=== PATIENT | female | born 1955 | race Caucasian/White ===

== ENCOUNTER 2021-05-07 17:13 | Inpatient (IN) ==
--- NOTE | 2021-05-07 18:58 | Emergency Department Note ---
Impression & Plan Abnormal EKG, PAGAN (dyspnea on exertion), Elevated troponin I level, Mass of lung, Anemia ED Provider Note NAME: ENRICO PRICE AGE: 66 SEX: F : 1955 ARRIVES VIA: Walk-In INFORMANT: Patient, ED PROVIDER(S): Matt Ladd DO CHIEF COMPLAINT: Shortness of breath HPI: The patient is a 66-year-old female who presented to the emergency department for an evaluation of shortness of breath. The patient has been experiencing shortness of breath with exertion for approximately 3 weeks. She does not currently have a primary care physician but was establishing with a new primary care physician today. She went there and had outpatient laboratory and radiographic studies. She also had an EKG. She was found to have an a bnormality on EKG as well as chest x-ray. She was sent to the emergency department for further evaluation. Apparently her family doctor also discussed the case with Dr. Farias with cardiology. The patient herself states that she does not have any past medical history. She does not take any medications. She was noted before to have elevated blood pressure but was never taking any medications for it. She is never had a cardiac work-up including echocardiogram or cardiac catheterization. She states her symptoms are significantly improved at rest. ROS: See above HPI for pertinent positives & negatives. A total of 10 systems reviewed and were otherwise negative. PAST MEDICAL HISTORY: See Below PAST SURGICAL HISTORY: See Below FAMILY HISTORY: See Below SOCIAL HISTORY: See Below HOME MEDICATIONS: See Below ALLERGIES: See Below VITALS: See Below PHYSICAL EXAMINATION: GENERAL: Patient is awake alert in no acute distress patient is resting comfortably and showing no signs of anxiety EYES: The conjunctivae are clear. The pupils are round and reactive. EARS, NOSE, MOUTH AND THROAT: The nose is without any evidence of any deformity. NECK: The neck is nontender and supple. RESPIRATORY: Normal respiratory effort is noted there is no evidence of wheezing rhonchi or rales CARDIOVASCULAR: Regular rate and rhythm noted there no murmurs rubs or gallops normal S1 normal S2. GASTROINTESTINAL: The abdomen is soft. Abdomen is nontender. MUSCULOSKELETAL/EXTREMITIES: There is no evidence of gross deformity full range of motion is noted in the hips and shoulders. SKIN: Chronic venous stasis changes were noted in both lower extremities. Trace pedal edema was noted bilaterally. Skin was warm and dry. NEUROLOGIC: Patient is awake alert and oriented x3. MEDICAL DECISION MAKING: The patient is a 66-year-old female who presented to the emergency department at the request of her new primary care physician for an evaluation of an abnormal EKG. The patient had been having shortness of breath with exertion over the last few weeks. She does not have a specific family doctor and I assume does not see physicians regularly. She does have a history of tobacco use. The patient also had a chest x-ray that was done as an outpatient. This appeared to show a wedge-shaped infiltrate. Given the patient's symptoms I was concerned this could represent a pulmonary embolism. I discussed the patient's laboratory and radiographic studies with her. She appears to have a mass in her lung. She was also found to have an abnormal EKG with a bump troponin. This reason I discussed her case with the on-call [facility]. She will likely require further work-up for the pulmonary mass but also a cardiac work-up to determine if her abnormal EKG is ischemic in nature. She was found to have anemia as well. This could be related to the mass in her lung. I could also be the underlying reason why the patient has an elevated troponin and an abnormal EKG. She may have ischemia caused by the anemia unmasking an underlying acute coronary process. Triage Nursing notes reviewed. Prior medical records reviewed Vital Signs: reviewed and remarkable for elevated blood pressure. Differential diagnosis: Cardiac ischemia, aortic dissection, pulmonary embolism, pneumothorax, pneumonia, pericarditis, myocarditis, esophageal rupture, GERD, cholecystitis, pancreatitis, musculoskeletal, as well as other pathologies. ER treatment provided: See below Diagnostics interpreted by me: ECG: EKG was obtained in the emergency department. My interpretation is normal sinus rhythm at 97 bpm. There is no ectopy. Inferior and lateral ST depressions were noted. There was a delta wave appreciated. This could be consistent with preexcitation tracing. No previous tracing was available for comparison. Cardiac Monitoring: An order was placed for continuous cardiac monitoring. The monitor shows a rate of 93 bpm with sinus rhythm. Laboratory studies: As stated above and show below. Imaging studies: See below Consultation(s): I discussed this case with Ricardo who is covering for the [facility] group. Past Med/Surg History Medical History Tobacco use Social History Smoking Status: Current every day smoker Feels Safe at Home: Yes Allergies Allergies Allergy/AdvReac Type Severity Reaction Status Date / Time No Known Allergies Allergy Mild Unverified 05/07/21 20:30 Home Meds Home Medications Medication Instructions Recorded Confirmed No Known Home Medications 05/07/21 05/07/21 Results & Data (ED) Vital Signs Vital Signs - 24 hr 05/07/21 17:22 05/07/21 19:00 05/07/21 19:30 Temperature 37 C Temperature Source Oral Pulse Rate 105 H 93 H Pulse Rate from SpO2 Sensor 94 H Respiratory Rate 18 23 Respiratory Effort / Characteristics Non-Labored Respiratory Depth Normal Blood Pressure 167/83 H 159/70 H Blood Pressure Mean 111 99 Pulse Oximetry 94 98 94 Oxygen Delivery Method Room Air Sepsis Recent Fever Within 48 Hours No Sepsis New/Unexplained Change in Mental Status No Sepsis Action Taken by Nursing No Action Required Home Medications Current Medication List: was personally reviewed by me Laboratory Data Attestation: I reviewed the patient's lab results. Result diagrams: 05/07/21 19:13 05/07/21 19:13 Lab Results 05/07/21 05/07/21 05/07/21 Range/Units 19:13 19:13 19:13 WBC 10.04 (4.8-10.8) K/uL RBC 4.51 (4.2-5.4) M/uL Hgb 8.6 L (12.0-16.0) g/dL Hct 30.7 L (37-47) % MCV 68.1 L (80-100) fL MCH 19.1 L (25-34) pg MCHC 28.0 L (32-36) g/dL Plt Count 408 H (130-400) K/uL Immature Gran % (Auto) 0.2 % Neut % (Auto) 80.2 % Lymph % (Auto) 12.5 % [place] % (Auto) 6.5 % Eos % (Auto) 0.3 % Baso % (Auto) 0.3 % Neut # (Auto) 8.05 H (1.4-6.5) K/uL Lymph # (Auto) 1.26 (1.2-3.4) K/uL [place] # (Auto) 0.65 H (0.11-0.59) K/uL Eos # (Auto) 0.03 (0-0.5) K/uL Baso # (Auto) 0.03 (0-0.2) K/uL Immature Gran # (Auto) 0.02 (0.00-0.02) K/uL Polychromasia 1+ Hypochromasia Present Poikilocytosis Present PT 10.9 (9.0-12.0) Seconds INR 1.1 (0.9-1.1) APTT 27.6 (21.0-31.0) Seconds PTT Ratio 1.0 Sodium 137 (136-145) mmol/L Potassium 4.0 (3.5-5.1) mmol/L Chloride 106 (98-107) mmol/L Carbon Dioxide 23 (21-32) mmol/L Anion Gap 8.0 (3-11) BUN 9 (7-18) mg/dl Creatinine 0.71 (0.6-1.2) mg/dl Est Cr Clr Drug Dosing Not Reportable Est GFR ( Amer) 102.2 ml/min Est GFR (Non-Af Amer) 88.1 ml/min BUN/Creatinine Ratio 12.0 (10-20) Glucose 121 H (70-99) mg/dl Calcium 8.8 (8.5-10.1) mg/dl Total Bilirubin 0.6 (0.2-1) mg/dl AST 19 (15-37) U/L ALT 13 (12-78) U/L Alkaline Phosphatase 150 H (45-117) U/L Troponin I 0.052 H* (0-0.045) ng/ml Total Protein 8.9 H (6.4-8.2) gm/dl Albumin 3.2 L (3.4-5.0) gm/dl Globulin 5.7 H (2.5-4.0) gm/dl Albumin/Globulin Ratio 0.6 L (0.9-2) Lipase 51 L (73-393) U/L COVID-19 Eval Order SARS-CoV-2 (PCR) (Negative) 05/07/21 05/07/21 Range/Units 19:15 19:15 WBC (4.8-10.8) K/uL RBC (4.2-5.4) M/uL Hgb (12.0-16.0) g/dL Hct (37-47) % MCV (80-100) fL MCH (25-34) pg MCHC (32-36) g/dL Plt Count (130-400) K/uL Immature Gran % (Auto) % Neut % (Auto) % Lymph % (Auto) % [place] % (Auto) % Eos % (Auto) % Baso % (Auto) % Neut # (Auto) (1.4-6.5) K/uL Lymph # (Auto) (1.2-3.4) K/uL [place] # (Auto) (0.11-0.59) K/uL Eos # (Auto) (0-0.5) K/uL Baso # (Auto) (0-0.2) K/uL Immature Gran # (Auto) (0.00-0.02) K/uL Polychromasia Hypochromasia Poikilocytosis PT (9.0-12.0) Seconds INR (0.9-1.1) APTT (21.0-31.0) Seconds PTT Ratio Sodium (136-145) mmol/L Potassium (3.5-5.1) mmol/L Chloride (98-107) mmol/L Carbon Dioxide (21-32) mmol/L Anion Gap (3-11) BUN (7-18) mg/dl Creatinine (0.6-1.2) mg/dl Est Cr Clr Drug Dosing Est GFR ( Amer) ml/min Est GFR (Non-Af Amer) ml/min BUN/Creatinine Ratio (10-20) Glucose (70-99) mg/dl Calcium (8.5-10.1) mg/dl Total Bilirubin (0.2-1) mg/dl AST (15-37) U/L ALT (12-78) U/L Alkaline Phosphatase (45-117) U/L Troponin I (0-0.045) ng/ml Total Protein (6.4-8.2) gm/dl Albumin (3.4-5.0) gm/dl Globulin (2.5-4.0) gm/dl Albumin/Globulin Ratio (0.9-2) Lipase (73-393) U/L COVID-19 Eval Order Covid19 at [facility] SARS-CoV-2 (PCR) NEGATIVE (Negative) Administered Medications Discontinued Medications Ioversol (Optiray 320 125ml) 110 ml IV ONCE ONE Stop: 05/07/21 20:04 Last Admin: 05/07/21 20:03 Dose: 1 ml Documented by: [id number] Imaging Data Radiologist's Impression: Chest CTA 05/07/21 18:49 CT angio chest PE protocol CLINICAL HISTORY: Chest Pain, eval for PE TECHNIQUE: Multidetector row helical CT of the chest was performed. Coronal and sagittal reformations were obtained. Automated dose lowering techniques and/or adjustment according to patient size were utilized for this exam. Comparison: None available at the time of this dictation. FINDINGS: Lungs and pleura: There is a large solid, cystic, and groundglass mass in the right upper lobe measuring 67 mm in diameter. 5 mm nodule is seen in the left major fissure (series 4 image 259). There is a 9 mm pleural-based nodule in the right apex. In addition, there is an 8 mm pleural-based nodule in the right lower lobe (image 173), a 7 mm nodule in the right middle lobe (image 165), a 5 mm pleural-based nodule in the left lower lobe (image 135). Atelectasis versus scarring is seen in the right middle lobe. Heart and pericardium: Heart size is normal. No pericardial effusion. Vessels: No evidence of pulmonary embolism. Mediastinum and vinicio: Unremarkable. Chest wall and lower neck: Subcentimeter axillary lymph nodes noted. Abdomen: Unremarkable. Bones: Compression deformity of the T7 vertebral body is noted. IMPRESSION: Multiple pulmonary nodules as above. Large cystic, solid, and groundglass nodule in the right upper lobe. Correlation with prior imaging and oncologic history is recommended to exclude metastatic disease and or right upper lobe primary lung cancer. ACT 112: Negative or not required by law. Electronically signed by: Lamont Oshea M.D. 05/07/2021 8:19 PM Discharge Plan Visit Data Chief Complaint: Shortness of Breath/Dyspnea Stated Complaint: SOB, IRREGULAR EKG ED Provider: Matt Ladd Discharge Problem: Abnormal EKG, PAGAN (dyspnea on exertion), Elevated troponin I level, Mass of lung, Anemia Patient Disposition: Being Evaluated by Hospitalist Forms Stand Alone Forms: JUNIQE Prescriptions Prescriptions: No Action No Known Home Medications RF: 0 Referrals Referrals: Unknown,Unknown [] -
[2021-05-07 19:39] LABS: INR 1.1 (0.9-1.1); Partial Thromboplastin Time 27.6 Seconds (21.0-31.0); Prothrombin Time 10.9 Seconds (9.0-12.0)
[2021-05-07 19:48] LABS: Alanine Aminotransferase 13 U/L (12-78); Albumin Level 3.2 gm/dl (3.4-5.0); Aspartate Aminotransferase 19 U/L (15-37); Blood Urea Nitrogen 9 mg/dl (7-18); Calcium 8.8 mg/dl (8.5-10.1); Carbon Dioxide 23 mmol/L (21-32); Chloride 106 mmol/L (98-107); Est GFR (African American) 102.2 ml/min; Est GFR (Non-African American) 88.1 ml/min; Glucose 121 mg/dl (70-99); Lipase 51 U/L (73-393); Sodium 137 mmol/L (136-145)
[2021-05-07 20:02] LABS: Albumin Globulin Ratio 0.6 (0.9-2); Alkaline Phosphatase 150 U/L (45-117); Bilirubin,Total 0.6 mg/dl (0.2-1); Globulin 5.7 gm/dl (2.5-4.0); Total Protein 8.9 gm/dl (6.4-8.2); Troponin I 0.052 ng/ml (0-0.045)
[2021-05-07] MEDS ORDERED: OPTIRAY 320 125ml IV ONE (20:03)
[2021-05-07 20:21] LABS: Hematocrit (blood only) 30.7 % (37-47); Hemoglobin 8.6 g/dL (12.0-16.0); Mean Corpuscular Hemoglobin 19.1 pg (25-34); Mean Corpuscular Volume 68.1 fL (80-100); Platelet Count 408 K/uL (130-400); Red Blood Count 4.51 M/uL (4.2-5.4); White Blood Count 10.04 K/uL (4.8-10.8)
--- NOTE | 2021-05-07 20:21 | CT Scan Report ---
CT angio chest PE protocol CLINICAL HISTORY: Chest Pain, eval for PE TECHNIQUE: Multidetector row helical CT of the chest was performed. Coronal and sagittal reformations were obtained. Automated dose lowering techniques and/or adjustment according to patient size were u tilized for this exam. Comparison: None available at the time of this dictation. FINDINGS: Lungs and pleura: There is a large solid, cystic, and groundglass mass in the right upper lobe measur ing 67 mm in diameter. 5 mm nodule is seen in the left major fissure (series 4 image 259). There is a 9 mm pleural-based nodule in the right apex. In addition, there is an 8 mm pleural-based nodule in t he right lower lobe (image 173), a 7 mm nodule in the right middle lobe (image 165), a 5 mm pleural-b ased nodule in the left lower lobe (image 135). Atelectasis versus scarring is seen in the right midd le lobe. Heart and pericardium: Heart size is normal. No pericardial effusion. Vessels: No evidence of pulmonary embolism. Mediastinum and vinicio: Unremarkable. Chest wall and lower neck: Subcentimeter axillary lymph nodes noted. Abdomen: Unremarkable. Bones: Compression deformity of the T7 vertebral body is noted. IMPRESSION: Multiple pulmonary nodules as above. Large cystic, solid, and groundglass nodule in the right upper l obe. Correlation with prior imaging and oncologic history is recommended to exclude metastatic diseas e and or right upper lobe primary lung cancer. ACT 112: Negative or not required by law. Electronically signed by: Lamont Oshea M.D. 05/07/2021 8:19 PM
[2021-05-07 20:22] LABS: Basophils # (auto) 0.03 K/uL (0-0.2); Basophils % (auto) 0.3 %; Eosinophils # (auto) 0.03 K/uL (0-0.5); Eosinophils % (auto) 0.3 %; Hypochromasia Present; Immature Granulocytes # (auto) 0.02 K/uL (0.00-0.02); Immature Granulocytes % (auto) 0.2 %; Lymphocytes # (auto) 1.26 K/uL (1.2-3.4); Lymphocytes % (auto) 12.5 %; Monocytes # (auto) 0.65 K/uL (0.11-0.59); Monocytes % (auto) 6.5 %; Neutrophils # (auto) 8.05 K/uL (1.4-6.5); Neutrophils % (auto) 80.2 %; Poikilocytosis Present; Polychromasia 1+
--- NOTE | 2021-05-07 22:09 | History & Physical Report ---
Date of Service May 07, 2021 Assessment & Plan (1) Abnormal EKG: Plan: Abnormal EKG/WPW with delta wave/elevated troponin- The patient will be admitted to telemetry for serial cardiac enzymes, serial EKG's, cardiac rhythm monitoring and a 2-D echocardiogram with Dopplers. Consult cardiology (2) PAGAN (dyspnea on exertion): Plan: Dyspnea on exertion- May be due to hypochromic microcytic anemia, with hemoglobin 8.6. Elevated troponin may be a sign of ischemic heart disease as a contributing factor Significant history of tobacco use, discontinued 1 week ago, may be an undiagnosed COPD with exacerbation Duonebs every 4 hours while awake and every 2 hours when necessary. (3) Elevated troponin I level: Plan: See above (4) Mass of lung: Plan: Right upper lobe lung mass, concerning for primary lung cancer or metastatic disease. Patient will need to be assessed by pulmonology, to see if bronchoscopy can be performed to get lung tissue for a definitive diagnosis (5) Anemia: Plan: Hemoglobin 8.6 upon admission. Hemoccult all stools Follow serial laboratories (6) WPW (Jodly-Ccvyupztx-Mwxlw syndrome): Plan: EKG with WPW and a delta wave Elevated troponin may have been related to an episode of increased heart rate, however, patient does deny any sensation of palpitations. (7) Pulmonary nodules/lesions, multiple: Plan: Will need to be followed per protocol over the next 6 years, in combination with lung mass right upper lobe History of Present Illness Chief Complaint: The patient presents to the emergency department with complaint of worsening shortness of breath and dyspnea on exertion over the past 3 weeks, and was referred to the emergency department by a new PCP that she saw earlier in the day today and was found to have an abnormal EKG Primary Care Provider: NO PCP The patient is a 66-year-old female with no significant past medical history due to not having been seen at a PCPs office for a long time. She presents to the emergency department with worsening shortness of breath and dyspnea on exertion over the past 3 weeks, having been referred by her PCP to the ED due to question of an abnormal EKG performed earlier in the outpatient office today. The patient herself denies chest pain. She denies any blood in stool or dark stools. Abnormal laboratories: WBC 10.04, hemoglobin 8.6, hematocrit 30.7, platelets 408, troponin 0.052, total protein 8.9, albumin 3.2 CT angiography chest PE protocol shows multiple pulmonary nodules, and a right upper lobe nodule with characteristics concerning for a primary lung cancer or metastatic disease. The patient does have history of tobacco use, but she reports quitting 1 week ago Allergies Allergy/AdvReac Type Severity Reaction Status Date / Time No Known Allergies Allergy Mild Unverified 05/07/21 20:30 Home Medications Medication Instructions Recorded Confirmed Type No Known Home Medications 05/07/21 05/07/21 History Past Med/Surg History Medical History Tobacco use Social History Smoking Status: Former smoker Second Hand Exposure: No; Hx Alcohol Use: No Hx Substance Use: No Preferred Language: Kyrgyz Communication Ability: Effective Wealth Management Manager Required: No Beliefs That Will Affect Care: None Current Living Situation: Alone Other Information That Helps Us Care for You: No Feels Safe at Home: Yes Safety Concerns: Feels Safe At This Time Assistive Devices: None Review of Systems Review of Systems: The patient denies chest pain, palpitations, lower extremity swelling, sore throat, fevers, chills, sweats, nausea, vomiting, diarrhea , constipation, abdominal pain, pelvic pain, blood in urine or stool, dysuria, urinary frequency or urgency, lightheadedness, dizziness, headache, memory loss, loss of consciousness, rash, abnormal bruising or bleeding, imbalance, focal or generalized weakness, numbness or tingling in arms or legs, generalized arthralgias or myalgias, back or neck pain, or night sweats. The review of systems is otherwise negative other than for that already noted above, and at least 10 systems have been reviewed. Physical Exam Physical Exam: The patient is awake, alert and oriented 3, well developed and well nourished, normocephalic and atraumatic, lying in bed and in no acute distress. HEENT--PERRL, EOMI, mucous membranes and oropharynx normal. Neck--supple. No JVD. No bruits. Thyroid normal, trachea midline, no adenopathy. Heart--normal S1 and S2. No murmurs, rubs or gallops. Lungs--diminished throughout. No respiratory distress, no accessory muscle use. Abdomen--normal bowel sounds and soft. Nontender. Nondistended, no hernias or masses, no organomegaly. Extremities--no cyanosis or clubbing. No edema. Dermatologic--normal skin turgor, normal color, no abnormal lymph nodes, no rash. Neurologic--cranial nerves II through XII grossly intact. Rheumatologic--normal range of motion. Psychiatric--normal affect. Results & Data Results & Data ([facility]) Vital Signs (Past 12 Hours) Vital Signs Temp Pulse Resp BP Pulse Ox 05/07/21 21:30 93 H 16 126/84 05/07/21 21:00 113 H 23 05/07/21 20:30 103 H 23 127/82 98 05/07/21 20:10 109 H 24 05/07/21 19:30 93 H 23 159/70 H 94 05/07/21 19:00 98 05/07/21 17:22 98.6 F 105 H 18 167/83 H 94 Laboratory Results Laboratory Results WBC 10.04 K/uL (4.8-10.8) 05/07/21 19:13 RBC 4.51 M/uL (4.2-5.4) 05/07/21 19:13 Hgb 8.6 g/dL (12.0-16.0) L 05/07/21 19:13 Hct 30.7 % (37-47) L 05/07/21 19:13 MCV 68.1 fL (80-100) L 05/07/21 19:13 MCH 19.1 pg (25-34) L 05/07/21 19:13 MCHC 28.0 g/dL (32-36) L 05/07/21 19:13 Plt Count 408 K/uL (130-400) H 05/07/21 19:13 Immature Gran % (Auto) 0.2 % 05/07/21 19:13 Neut % (Auto) 80.2 % 05/07/21 19:13 Lymph % (Auto) 12.5 % 05/07/21 19:13 [place] % (Auto) 6.5 % 05/07/21 19:13 Eos % (Auto) 0.3 % 05/07/21 19:13 Baso % (Auto) 0.3 % 05/07/21 19:13 Neut # (Auto) 8.05 K/uL (1.4-6.5) H 05/07/21 19:13 Lymph # (Auto) 1.26 K/uL (1.2-3.4) 05/07/21 19:13 [place] # (Auto) 0.65 K/uL (0.11-0.59) H 05/07/21 19:13 Eos # (Auto) 0.03 K/uL (0-0.5) 05/07/21 19:13 Baso # (Auto) 0.03 K/uL (0-0.2) 05/07/21 19:13 Immature Gran # (Auto) 0.02 K/uL (0.00-0.02) 05/07/21 19:13 Polychromasia 1+ 05/07/21 19:13 Hypochromasia Present 05/07/21 19:13 Poikilocytosis Present 05/07/21 19:13 PT 10.9 Seconds (9.0-12.0) 05/07/21 19:13 INR 1.1 (0.9-1.1) 05/07/21 19:13 APTT 27.6 Seconds (21.0-31.0) 05/07/21 19:13 PTT Ratio 1.0 05/07/21 19:13 Sodium 137 mmol/L (136-145) 05/07/21 19:13 Potassium 4.0 mmol/L (3.5-5.1) 05/07/21 19:13 Chloride 106 mmol/L (98-107) 05/07/21 19:13 Carbon Dioxide 23 mmol/L (21-32) 05/07/21 19:13 Anion Gap 8.0 (3-11) 05/07/21 19:13 BUN 9 mg/dl (7-18) 05/07/21 19:13 Creatinine 0.71 mg/dl (0.6-1.2) 05/07/21 19:13 Est Cr Clr Drug Dosing Not Reportable 05/07/21 19:13 Est GFR ( Amer) 102.2 ml/min 05/07/21 19:13 Est GFR (Non-Af Amer) 88.1 ml/min 05/07/21 19:13 BUN/Creatinine Ratio 12.0 (10-20) 05/07/21 19:13 Glucose 121 mg/dl (70-99) H 05/07/21 19:13 Calcium 8.8 mg/dl (8.5-10.1) 05/07/21 19:13 Total Bilirubin 0.6 mg/dl (0.2-1) 05/07/21 19:13 AST 19 U/L (15-37) 05/07/21 19:13 ALT 13 U/L (12-78) 05/07/21 19:13 Alkaline Phosphatase 150 U/L (45-117) H 05/07/21 19:13 Troponin I 0.071 ng/ml (0-0.045) H* 05/07/21 23:53 Total Protein 8.9 gm/dl (6.4-8.2) H 05/07/21 19:13 Albumin 3.2 gm/dl (3.4-5.0) L 05/07/21 19:13 Globulin 5.7 gm/dl (2.5-4.0) H 05/07/21 19:13 Albumin/Globulin Ratio 0.6 (0.9-2) L 05/07/21 19:13 Lipase 51 U/L (73-393) L 05/07/21 19:13 COVID-19 Eval Order Covid19 at [facility] 05/07/21 19:15 SARS-CoV-2 (PCR) NEGATIVE (Negative) 05/07/21 19:15 Hepatitis C Ab Screen Neg (Neg) 05/07/21 23:53 Impressions Chest CTA 05/07/21 18:49 CT angio chest PE protocol CLINICAL HISTORY: Chest Pain, eval for PE TECHNIQUE: Multidetector row helical CT of the chest was performed. Coronal and sagittal reformations were obtained. Automated dose lowering techniques and/or adjustment according to patient size were utilized for this exam. Comparison: None available at the time of this dictation. FINDINGS: Lungs and pleura: There is a large solid, cystic, and groundglass mass in the right upper lobe measuring 67 mm in diameter. 5 mm nodule is seen in the left major fissure (series 4 image 259). There is a 9 mm pleural-based nodule in the right apex. In addition, there is an 8 mm pleural-based nodule in the right lower lobe (image 173), a 7 mm nodule in the right middle lobe (image 165), a 5 mm pleural-based nodule in the left lower lobe (image 135). Atelectasis versus scarring is seen in the right middle lobe. Heart and pericardium: Heart size is normal. No pericardial effusion. Vessels: No evidence of pulmonary embolism. Mediastinum and vinicio: Unremarkable. Chest wall and lower neck: Subcentimeter axillary lymph nodes noted. Abdomen: Unremarkable. Bones: Compression deformity of the T7 vertebral body is noted. IMPRESSION: Multiple pulmonary nodules as above. Large cystic, solid, and groundglass nodule in the right upper lobe. Correlation with prior imaging and oncologic history is recommended to exclude metastatic disease and or right upper lobe primary lung cancer. ACT 112: Negative or not required by law. Electronically signed by: Lamont Oshea M.D. 05/07/2021 8:19 PM Code Status & VTE Plan Code Status Full code VTE Prophylaxis Plan VTE Prophylaxis will be ordered: Yes PG Care Time/CCT Total # of Minutes Spent Total Time Spent with Patient: Total time spent is greater than 50% in coordination of care (as documented) at patient's floor/unit and/or counseling patient: Coding Level of Care Code 39978 Initial Inpt Care Lvl 3 Diagnoses Abnormal EKG R94.31 PAGAN (dyspnea on exertion) R06.00 Elevated troponin I level R77.8 Mass of lung R91.8 Anemia D64.9 Anemia type: unspecified type WPW (Cqzgg-Tjqitbfug-Evenf syndrome) I45.6 Pulmonary nodules/lesions, multiple R91.8 (1) Anemia Anemia type: unspecified type Qualified Code(s): D64.9 - Anemia, unspecified
[2021-05-07] MEDS ORDERED: ONDANSETRON INJ 2 MG/ML 2 ML VIAL IV PRN (23:17)
[2021-05-07] MEDS ORDERED: ACETAMINOPHEN 325 MG TAB PO PRN (23:17)
[2021-05-07] MEDS ORDERED: NITROGLYCERIN SL 0.4 MG/TAB TAB SL PRN (23:17)
[2021-05-08] MEDS: ALBUT/IPRATROP 3MG/0.5MG NEB 3 ML VIAL NEB SCH ×4 (07:26→20:30)
[2021-05-08 08:16] LABS: Hematocrit (blood only) 30.7 % (37-47); Hemoglobin 8.2 g/dL (12.0-16.0); Mean Corpuscular Hemoglobin 18.8 pg (25-34); Mean Corpuscular Hgb Conc 26.7 g/dL (32-36); Mean Corpuscular Volume 70.3 fL (80-100); Mean Platelet Volume 9.8 fL (7.4-10.4); Platelet Count 449 K/uL (130-400); RDW Standard Deviation 53.8 fL (36.4-46.3); Red Blood Count 4.37 M/uL (4.2-5.4); White Blood Count 6.74 K/uL (4.8-10.8)
[2021-05-08 08:23] LABS: Albumin Globulin Ratio 0.5 (0.9-2); Albumin Level 2.9 gm/dl (3.4-5.0); Bilirubin,Total 0.5 mg/dl (0.2-1); Calcium 8.7 mg/dl (8.5-10.1); Creatinine Clr Calc Pharmacy 88.4 ml/min; Est GFR (African American) 110.5 ml/min; Est GFR (Non-African American) 95.4 ml/min; Globulin 5.4 gm/dl (2.5-4.0); Potassium 3.7 mmol/L (3.5-5.1); Total Protein 8.4 gm/dl (6.4-8.2)
[2021-05-08 08:24] LABS: Troponin I 0.071 ng/ml (0-0.045)
[2021-05-08 09:02] LABS: Anisocytosis Present; Basophils # (auto) 0.04 K/uL (0-0.2); Basophils % (auto) 0.6 %; Eosinophils # (auto) 0.05 K/uL (0-0.5); Eosinophils % (auto) 0.7 %; Hypochromasia Present; Immature Granulocytes # (auto) 0.01 K/uL (0.00-0.02); Immature Granulocytes % (auto) 0.1 %; Lymphocytes # (auto) 1.32 K/uL (1.2-3.4); Lymphocytes % (auto) 19.6 %; Microcytosis Present; Monocytes # (auto) 0.84 K/uL (0.11-0.59); Monocytes % (auto) 12.5 %; Neutrophils # (auto) 4.48 K/uL (1.4-6.5); Neutrophils % (auto) 66.5 %; Polychromasia 1+
[2021-05-08] MEDS: ASPIRIN 81 MG ECTAB PO SCH (09:08)
[2021-05-08] MEDS: FAMOTIDINE 20 MG in SYRINGE 3 ML IV SCH ×2 (09:10→21:46)
[2021-05-08] MEDS: ENOXAPARIN INJ 40 MG/0.4 ML SYR SQ SCH (09:10)
[2021-05-08] MEDS ORDERED: PNEUMOCOCCAL POLYSACCHARIDES 25 MCG/0.5 ML VIAL/SYR IM ONE (10:00)
[2021-05-08] MEDS ORDERED: INFLUENZA VACCINE HIGH DOSE PF 65+ 0.7 ML SYR IM ONE (10:00)
[2021-05-08 11:37] LABS: Ferritin 6.2 ng/ml (8-388)
--- NOTE | 2021-05-08 12:19 | XCELERA ---
[id number]
--- NOTE | 2021-05-08 13:21 | Cardiology Consultation ---
Date of Consultation May 08, 2021 Assessment & Plan (1) WPW (Yiufr-Opvaycabz-Flmcf syndrome): -no prior EKGs for comparison. -she gives a history of rare short-lived palpitations. -will ask an opinion from one of our electrophysiologists. (2) Elevated troponin I level: -suspect a supply demand mismatch as she has borderline LVH, sinus tachycardia, and a profound anemia. -no evidence to suggest an acute coronary syndrome. -no need for intravenous heparin. (3) Mitral regurgitation: -mild to moderate on current echocardiogram. History of Present Illness Attending Physician: Muna Levy MD History of Present Illness Ms. Hubbard is a 66-year-old female admitted yesterday with progressive shortness of breath, anemia, and an abnormal EKG. This consultation was ordered to assist in her cardiac management. The patient was in her usual state of health until approximately 3 weeks prior to presentation. She began to note progressive exertional dyspnea and fatigue. She did not experience exertional chest pain. She presented to her PCP on the day of admission with the above complaints. An EKG was performed which noted a short UT interval and a delta wave consistent with Kwkhh-Hzpjkgcdn-Zyylb syndrome. She was sent to the emergency room for further care. On arrival here, patient was noted to be significantly anemic. Hospitalization was recommended. Unfortunately, part of her evaluation included CT scan of the chest which noted large right upper lobe mass consistent with a malignancy. The patient has never had a prior EKG according to her report. She was never told of the Auacd-Jnnoqplds-Bnpci syndrome. She does experience occasional sustained palpitations lasting no more than several seconds. This occurs quite infrequently. Currently, patient is resting comfortably in bed without complaints. Past medical and surgical history 1. 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 Rcto-el-runvchkn mitral regurgitation 3. Borderline LVH Social history Single, lives alone Quit tobacco use 1 week ago. Smoked 1.5-2 packs cigarettes daily for many years. Rare alcohol Family history Mother at 93 with breast cancer Father at 94 from coronary disease Review of systems A 10 review systems was negative except that described above. 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 HEENT exam notes poor dentition. Neck is supple with full carotid upstrokes. No carotid bruits. Jugular is pressure is flat at 90. There is no thyromegaly. Cardiovascular exam reveals a regular rhythm with a 2/6 apical holosystolic murmur. No S3-S4. Lungs are clear without rales, rhonchi or wheezes. Abdomen is soft and nontender without bruits. Extremities reveal intact radial artery pulses bilaterally. There is no peripheral edema. Results & Data ([facility]) Vital Signs (Past 12 Hours) Vital Signs Temp Pulse Resp BP Pulse Ox 05/08/21 12:10 87 20 96 05/08/21 12:00 36.8 C 91 H 26 H 140/82 95 05/08/21 07:49 36.8 C 96 H 20 161/79 H 93 05/08/21 07:26 87 18 92 05/08/21 04:00 36.7 C 97 H 16 149/76 H 92 Laboratory Results CBC notes hemoglobin 8.2, hematocrit 30.7, white count 6.74, platelet count [id number]. Electrolytes note a sodium of 140, potassium 3.7, chloride 109, bicarb 25, BUN 9, creatinine 0.58, glucose of 109. Initial troponin was mildly elevated 0.052 with follow-up values of 0.071 x 2. 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 Chest x-ray shows no acute disease. Echocardiogram notes normal left ventricular systolic function with ejection fraction of 60-65%. There is borderline LVH and mild to moderate mitral regurgitation. CT scan of the chest notes multiple pulmonary nodules and is 67 mm in diameter right upper lobe mass. PG Care Time/CCT Total # of Minutes Spent Total Time Spent with Patient: Total time spent is greater than 50% in coordination of care (as documented) at patient's floor/unit and/or counseling patient: Coding Level of Care Code 21384 Initial Inpt Care Lvl 3 Diagnoses WPW (Exaen-Aceyrwcxh-Koxlq syndrome) I45.6 Mitral regurgitation I34.0 Elevated troponin I level R77.8
--- NOTE | 2021-05-08 14:05 | Electrocardiogram Report ---
Test Reason : Blood Pressure : / mmHG Vent. Rate : 097 BPM Atrial Rate : 097 BPM P-R Int : 124 ms QRS Dur : 108 ms QT Int : 414 ms P-R-T Axes : 079 066 -29 degrees QTc Int : 525 ms Normal sinus rhythm Ventricular pre-excitation, WPW pattern type B Abnormal ECG No previous ECGs available Confirmed by Matt Torres ([id number]) on 05/08/2021 2:05:09 PM Referred By: REFERRED SELF Confirmed By:Matt Torres
--- NOTE | 2021-05-08 14:13 | Electrocardiogram Report ---
Test Reason : Blood Pressure : / mmHG Vent. Rate : 097 BPM Atrial Rate : 097 BPM P-R Int : 114 ms QRS Dur : 106 ms QT Int : 404 ms P-R-T Axes : 074 061 -78 degrees QTc Int : 513 ms Normal sinus rhythm Marked ST abnormality, possible inferior subendocardial injury Prolonged QT Abnormal ECG When compared with ECG of 07-MAY-2021 19:06, (unconfirmed) Xgrui-zeeromqyu-vpnsy is no longer Present Confirmed by Matt Torres ([id number]) on 05/08/2021 2:12:55 PM Referred By: REFERRED SELF Confirmed By:Matt Torres
--- NOTE | 2021-05-08 16:05 | Hospitalist Progress Note ---
Date of Service May 08, 2021 Assessment & Plan (1) Abnormal EKG: (2) WPW (Idszd-Qsmarlgdt-Vfwfw syndrome): (3) Pulmonary nodules/lesions, multiple: (4) Mitral regurgitation: (5) Elevated troponin I level: (6) Mass of lung: (7) Anemia: (8) PAGAN (dyspnea on exertion): Plan: 66 y/o who presented to PCP office with shortness of breath send to ED for abnormal EKG (1) Abnormal EKG: Abnormal EKG/WPW with delta wave/elevated troponin- -The patient is admitted to telemetry for serial cardiac enzymes, serial EKG's, cardiac rhythm monitoring and a 2-D echocardiogram with Dopplers. -Cardiology confirmed WPW, they do not believe that there is any ACS at this t jayden. Further to be addressed by EP -Echo revealed mild to moderate mitral regurgitation. (2) PAGAN (dyspnea on exertion): -Pulse Ox has been 92 or above on RA throughout time in hospital. -Elevated troponin - likely demand ischemia -PE ruled out -Significant history of tobacco use, discontinued 1 week ago, may be an undiagnosed COPD with exacerbation -Pro-BNP elevation noted, but not as concerned for fluid overload as the cause. -Continue Duonebs every 4 hours while awake and every 2 hours when necessary as pt felt that this did help her symptoms, recommend PFTs in the future. (3) Elevated troponin I level: -Cardiology believes that elevated troponin is secondary to supply demand mismatch as she has borderline LVH, sinus tachycardia, and anemia present. -No heparin drip indicated at this time, no evidence to suggest ACS. -0.05 on admission, elevated to 0.07 and now back to 0.05. (4) Mass of lung: -Right upper lobe lung mass, concerning for primary lung cancer or metastatic disease. -Patient will need to be assessed by pulmonology to see if bronchoscopy can be performed to get lung tissue for a definitive diagnosis. -Consult pulmonology on Monday -Will need to be followed per protocol over the next 6 years, in combination with lung mass right upper lobe (5) Anemia: -Hemoglobin 8.6 upon admission. -Hemoccult all stools -Follow serial laboratories -Serum Iron, Transferrin, and TIBC ordered for suspect iron deficiency anemia -Will need colonoscopy as outpatient. (6) WPW (Rriuq-Hgkagndkp-Hkbca syndrome): -EKG with WPW and a delta wave -Elevated troponin may have been related to an episode of increased heart rate, however, patient does deny any sensation of palpitations. -Cardiology is going to get opinion from one of the electrophysiologists on further action. Kenisha Full code Admission and Anticipated Discharge Date Admission Date: May 07, 2021 Supervising Physician Co-Signing Physician Notes Resident Physician Supervision Note: I independently interviewed and examined the patient and verified the santa history and physical, reviewed labs and image studies and agree with resident Dr. Najera findings and care plan. Subjective Chief Complaint: The patient presents to the emergency department with complaint of worsening shortness of breath and dyspnea on exertion over the past 3 weeks, and was referred to the emergency department by a new PCP that she saw earlier in the day today and was found to have an abnormal EKG The patient is a 66-year-old female with no significant past medical history due to not having been seen at a PCPs office for a long time. She had presented to the emergency department with worsening shortness of breath and dyspnea on exertion over the past 3 weeks, having been referred by her recently new PCP to the ED due to question of an abnormal EKG performed earlier in the outpatient office on 05/07/21. She states that she has had increasing difficulty walking around around the house as it makes her SOB, but she is comfortable at rest that seems to be getting progressively worse. The patient herself denies syncope, chest pain, orthopnea, or cough. She reports that she does have swelling and dry skin on her legs. She has a significant smoking history reporting 1.5-2 packs of cigarettes per day for the past 50 years with quitting a week prior to today. She did not have routine care prior to her recent complaint of PAGAN. This is why she has no chronic medical conditions according to her history. She has not had a colonoscopy or any routine screening for health maintainence. Pt has never had a cardiovascular workout or prior EKGs. Pt denies any blood in stool or dark stools or abdominal pain. Her family history is significant for Mother passing at 93 with breast cancer and father passing at 94 from coronary disease. Denies and FHx of colon cancer. Pt was started on DuoNebs this morning which the patient reports helped her SOB somewhat, but it was still present. Studies performed in the ED -A CTA of the chest was performed, but did not show an pulmonary embolism, however, it did show multiple pulmonary nodules, and a right upper lobe nodule with characteristics concerning for a primary lung cancer or metastatic disease. -EKG revealing WPW with inferior and lateral ST depressions noted. -CBC revealing anemia at 8.6 -Troponin level of 0.052 Review of Systems Review of Systems: All systems reviewed & are unremarkable except as noted in HPI & below Physical Exam Constitutional: WD/WN, vitals as above cooperative Eyes: PERRL, conjunctivae normal, anicteric sclerae Neck: trachea midline, no thyromegaly Respiratory: normal respiratory effort; no respiratory distress Auscultation: + rales and + wheezes Cardiovascular: Rate/Rhythm: regular rhythm and + tachycardic Heart Sounds: normal S1, normal S2 and + murmur (2/6 systolic murmur best heard at the apex.) Palpation: normal PMI Vessels: no JVD Extremities: + edema (1+ pitting e althea of the LE b/l) Gastrointestinal (Abdomen): normal bowel sounds, soft, nontender, no hepatosplenomegaly Skin: + dry skin (LE b/l) Neurologic: moves all extremities Psychiatric: A+Ox3, euthymic affect Lymphatic: no cervical or axillary lymphadenopathy Results & Data Results & Data ([facility]) Vital Signs (Past 12 Hours) Vital Signs Temp Pulse Resp BP Pulse Ox 05/08/21 15:14 87 18 95 05/08/21 12:10 87 20 96 05/08/21 12:00 36.8 C 91 H 26 H 140/82 95 05/08/21 07:49 36.8 C 96 H 20 161/79 H 93 05/08/21 07:26 87 18 92 05/08/21 04:00 36.7 C 97 H 16 149/76 H 92 (1) Anemia Anemia type: unspecified type Qualified Code(s): D64.9 - Anemia, unspecified
[2021-05-09 07:09] LABS: Hematocrit (blood only) 30.1 % (37-47); Hemoglobin 8.1 g/dL (12.0-16.0); Mean Corpuscular Hemoglobin 18.8 pg (25-34); Mean Corpuscular Hgb Conc 26.9 g/dL (32-36); Mean Corpuscular Volume 69.8 fL (80-100); Mean Platelet Volume 9.9 fL (7.4-10.4); Platelet Count 424 K/uL (130-400); RDW Coefficient of Variation 20.9 % (11.5-14.5); RDW Standard Deviation 53.2 fL (36.4-46.3); Red Blood Count 4.31 M/uL (4.2-5.4); White Blood Count 5.92 K/uL (4.8-10.8)
[2021-05-09] MEDS: ALBUT/IPRATROP 3MG/0.5MG NEB 3 ML VIAL NEB SCH (07:28)
[2021-05-09 07:31] LABS: Basophils # (auto) 0.03 K/uL (0-0.2); Basophils % (auto) 0.5 %; Eosinophils # (auto) 0.05 K/uL (0-0.5); Eosinophils % (auto) 0.8 %; Hypochromasia Present; Immature Granulocytes # (auto) 0.01 K/uL (0.00-0.02); Immature Granulocytes % (auto) 0.2 %; Lymphocytes # (auto) 1.12 K/uL (1.2-3.4); Lymphocytes % (auto) 18.9 %; Microcytosis Present; Monocytes # (auto) 0.76 K/uL (0.11-0.59); Monocytes % (auto) 12.8 %; Neutrophils # (auto) 3.95 K/uL (1.4-6.5); Neutrophils % (auto) 66.8 %; Polychromasia 1+
[2021-05-09 07:45] LABS: Albumin Level 2.8 gm/dl (3.4-5.0); BUN Creatinine Ratio 14.4 (10-20); Calcium 8.4 mg/dl (8.5-10.1); Creatinine Clr Calc Pharmacy 74.1 ml/min; Est GFR (African American) 105.4 ml/min; Potassium 3.8 mmol/L (3.5-5.1)
[2021-05-09 07:48] LABS: Albumin Globulin Ratio 0.5 (0.9-2); Bilirubin,Total 0.4 mg/dl (0.2-1); Globulin 5.3 gm/dl (2.5-4.0); Total Protein 8.1 gm/dl (6.4-8.2)
[2021-05-09] MEDS ORDERED: POLYETHYLENE (MIRALAX) 17 GM PACK PO PRN (08:00)
[2021-05-09] MEDS: ASPIRIN 81 MG ECTAB PO SCH (08:38)
[2021-05-09] MEDS: ENOXAPARIN INJ 40 MG/0.4 ML SYR SQ SCH (08:38)
[2021-05-09] MEDS: FAMOTIDINE 20 MG in SYRINGE 3 ML IV SCH (08:42)
[2021-05-09] MEDS ORDERED: FERROUS SULFATE 325 MG TAB PO SCH (09:00)
[2021-05-09] MEDS ORDERED: ALBUT/IPRATROP 3MG/0.5MG NEB 3 ML VIAL NEB PRN (09:16)
[2021-05-09] MEDS ORDERED: IRON SUCROSE 200 MG in 0.9 % SODIUM CHLORIDE 100 ML IV SCH (12:00)
[2021-05-09] MEDS ORDERED: OPTIRAY 320 100ml IV ONE (15:35)
--- NOTE | 2021-05-09 15:46 | CT Scan Report ---
CT abd pelvis oral and IV con CLINICAL HISTORY: Primary lung nodule and iron deficient anemia TECHNIQUE: Helical axial images of the abdomen and pelvis were obtained and displayed. Automated dose lowering techniques and/or adjustment according to patient size were utilized for this exam. This e xam was performed with intravenous contrast. COMPARISON: None available at the time of this dictation. FINDINGS: Lower chest: A 7 mm nodule is in the lingula. 4 mm pleural-based nodules at the right lung base. Liver: Unremarkable. No focal lesions are seen. Gallbladder and biliary tree: No calcified gallstones. Normal caliber wall. No intra- or extrahepatic biliary ductal dilation. Pancreas: Unremarkable, no focal lesions. Spleen: Unremarkable. Adrenals: There is a 1 cm left adrenal nodule measuring greater than fat density. Kidneys and ureters: Unremarkable. Bladder: Unremarkable. Reproductive organs: Unremarkable. Bowel: A hiatal hernia is seen. Lymph nodes Retroperitoneal: Unremarkable. Mesenteric: Unremarkable. Pelvic: Lymph node are seen in the bilateral inguinal regions measuring up to 9 mm. Peritoneum: Unremarkable. Vessels: Atherosclerotic calcifications are seen. Abdominal wall: Unremarkable. Bones: Bilateral pars defects at L5-S1 with resultant grade 2 anterolisthesis. No lytic or sclerotic lesions are seen. IMPRESSION: There is a soft tissue density nodule in the left adrenal gland. Which may represent a lipid poor heath noma or metastatic lesion. Adrenal protocol CT or MRI can be performed to further characterize this f inding. Subcentimeter lymph nodes in the bilateral inguinal regions is favored to be reactive. Otherw ise, no evidence of metastatic disease below the diaphragm. ACT 112: Negative or not required by law. Electronically signed by: Lamont sOhea M.D. 05/09/2021 3:44 PM
--- NOTE | 2021-05-09 16:52 | Discharge Summary ---
Date of Service May 09, 2021 Admission HPI Per Admitting Provider The patient is a 66-year-old female with no significant past medical history due to not having been seen at a PCPs office for a long time. She presents to the emergency department with worsening shortness of breath and dyspnea on exertion over the past 3 weeks, having been referred by her PCP to the ED due to question of an abnormal EKG performed earlier in the outpatient office today. The patient herself denies chest pain. She denies any blood in stool or dark stools. Abnormal laboratories: WBC 10.04, hemoglobin 8.6, hematocrit 30.7, platelets 408, troponin 0.052, total protein 8.9, albumin 3.2 CT angiography chest PE protocol shows multiple pulmonary nodules, and a right upper lobe nodule with characteristics concerning for a primary lung cancer or metastatic disease. The patient does have history of tobacco use, but she reports quitting 1 week ago Principal Diagnosis PAGAN secondary to demand ischemia likely due to iron deficient anemia Discharge Exam Constitutional WD/WN, vitals as above cooperative Eyes PERRL, conjunctivae normal, anicteric sclerae Neck trachea midline, no thyromegaly Respiratory normal respiratory effort; no respiratory distress Cardiovascular Rate/Rhythm: regular rhythm and + tachycardic Heart Sounds: normal S1, normal S2 and + murmur (2/6 systolic murmur best heard at the apex.) Palpation: normal PMI Vessels: no JVD Extremities: + edema (1+ pitting edema of the LE b/l) Gastrointestinal (Abdomen) normal bowel sounds, soft, nontender, no hepatosplenomegaly Skin + dry skin (LE b/l) Neurologic moves all extremities Psychiatric A+Ox3, euthymic affect Lymphatic no cervical or axillary lymphadenopathy Discharge Data Allergies Allergy/AdvReac Type Severity Reaction Status Date / Time No Known Allergies Allergy Mild Unverified 05/07/21 20:30 Consultations 05/07/21 21:05 ED Decision to Admit Stat 05/07/21 23:17 Consult Cardiology Routine Ordered Studies 05/07/21 18:49 CT angio chest PE protocol Stat 05/09/21 11:12 CT abd pelvis oral and IV con Routine Hospital Course (1) Abnormal EKG: (2) WPW (Hbwam-Nntqgxyff-Aytnu syndrome): (3) Pulmonary nodules/lesions, multiple: (4) Mitral regurgitation: (5) Elevated troponin I level: (6) Mass of lung: (7) Anemia: (8) PAGAN (dyspnea on exertion): 66 y/o who presented to PCP office with shortness of breath send to ED for abnormal EKG (1) Abnormal EKG: Abnormal EKG/WPW with delta wave/elevated troponin- -The patient was admitted to telemetry for serial cardiac enzymes, serial EKG's, cardiac rhythm monitoring and a 2-D echocardiogram with Dopplers. -Cardiology confirmed WPW, they do not believe that there is any ACS at this time. F/u with cardiology in the outpatient setting. -Echo revealed mild to moderate mitral regurgitation. -Will likely need an ablation in the rat exterminator to terminate the accessory pathway causing WPW. (2) PAGAN (dyspnea on exertion): -Pulse Ox has been 92 or above on RA throughout time in hospital. -Improved since hospitalization after receiving DuoNebs Q6h during stay. -Elevated troponin - likely demand ischemia -PE ruled out -Significant history of tobacco use, discontinued 1 week ago, may be an undiagnosed COPD with exacerbation, will follow in outpatient setting. -Pro-BNP elevation noted, but not as concerned for fluid overload as the cause. -Recommend PFTs in the future. (3) Elevated troponin I level: -Cardiology believes that elevated troponin is secondary to supply demand mismatch as she has borderline LVH, sinus tachycardia, and anemia present. -No heparin drip indicated at this time, no evidence to suggest ACS. -0.05 on admission, elevated to 0.07 and now back to 0.05. (4) Mass of lung: -Right upper lobe lung mass, concerning for primary lung cancer or metastatic disease. -Patient will need to be assessed by pulmonology to see if bronchoscopy can be performed to get lung tissue for a definitive diagnosis. -Discussed with pulmonology who states the lesions are not able to be biopsied via bronchoscopy and an outpatient workup would be more appropriate at this time. -Will need to be followed per protocol over the next 6 years for lung nodules. -CT of abdomen/pelvis done with contrast found singular lesion: "There is a soft tissue density nodule in the left adrenal gland. Which may represent a lipid poor adenoma or metastatic lesion." Otherwise there was no sign of malignancy below the diaphragm. (5) Anemia: -Hemoglobin 8.6 upon admission. Low ferritin and serum iron indicated iron deficient anemia -Iron sucrose IV given as well as oral sulfate given today. Continue ferrous sulfate upon D/C. -Will need colonoscopy as outpatient. (6) WPW (Xwqtd-Xnbjxksgs-Jsabm syndrome): -EKG with WPW and a delta wave -Elevated troponin may have been related to an episode of increased heart rate, however, patient does deny any sensation of palpitations. -Cardiology is going to get opinion from one of the electrophysiologists on further action. Total Time Total Time Spent Total Time Spent (In Minutes): 30 Discharge Plan Discharge Items Patient Disposition: Home - Self-Care Reason For Visit: SOB, ELEVATED TROPONIN, WPW Discharge Diagnosis: PAGAN secondary to demand ischemia likely due to anemia Activity: Resume your previous activity Non-emergency contact: Primary Care Provider and Cell Biology Scientist Follow-up/Referrals: Brooks Najera DO [Resident] - PCP,NO [Primary Care Provider] - Diet: Heart Healthy Addtl Attending Provider Instructions: You were seen in the hospital for shortness of breath on exertion. Your workup included having an EKG, CT of the chest and abdomen, as well as lab work that can be found in your discharge paperwork. 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 WPW will be further worked up by Cardiology for which I will get you set up with. The pulmonary nodules, as discussed, require an extensive workup we can do in the outpatient setting and a referral to pulmonology will be made, and the iron deficient anemia will be treated by the iron supplement you will be sent home with. It is recommended that you get a colonoscopy in the outpatient setting as this could be the source of blood loss for anemia. A workup for COPD is also recommended as you have a significant smoking history and your symptoms improved with DuoNebs, a medication for COPD. You may return to your previous activity as tolerated. It was a pleasure to be a part of your care and I wish you the best in your recovery as well as your wellbeing. Pending Studies at Discharge: No Stand-Alone Forms: My [facility] [employer], Smoking Cessation Medications and DC Order Prescriptions: New polyethylene glycol 3350 [Miralax] 17 gram Powder In Packet 17 g PO DAILY PRN (Reason: constipation) 30 Days Qty: 30 RF: 0 ferrous sulfate 325 mg (65 mg iron) Tablet,Delayed Release (Dr/Ec) 325 mg PO QAM 30 Days Qty: 30 RF: 0 Discharge Orders: Discharge Order (Routine); Ordered 05/09/21 Ordered By: Brooks Palm/Other Patient Handouts: Anemia, Shortness of Breath Coping, Iron Supplements, ED Pulmonary Nodule, Solitary Admission Data Admit Date/Time: 05/07/21 22:08 Attending Provider: Muna Levy Admit Provider: Walter Kenyon Primary Care Provider: PCP,LION Other Providers: Walter Kenyon ; Alfredo Lucas Supervising Physician Co-Signing Physician Notes Resident Physician Supervision Note: I independently interviewed and examined the patient and verified the santa history and physical, reviewed labs and image studies and agree with resident Dr. Najera findings and care plan.
[2021-05-10 11:17] LABS: iSTAT Creatinine 0.6 mg/dl (0.6-1.3); iSTAT Hemoglobin 11.2 g/dl (12.0-16.0); iSTAT Ionized Calcium 1.14 mmol/l (1.12-1.32); iSTAT Potassium 3.9 mmol/L (3.3-5.0)
--- NOTE | 2021-05-11 04:34 | Electrocardiogram Report ---
Test Reason : Blood Pressure : / mmHG Vent. Rate : 074 BPM Atrial Rate : 074 BPM P-R Int : 108 ms QRS Dur : 110 ms QT Int : 440 ms P-R-T Axes : 070 056 035 degrees QTc Int : 488 ms Normal sinus rhythm Nuoxt-igithpswq-uvzsm pattern Nonspecific ST abnormality Prolonged QT Abnormal ECG When compared with ECG of 08-MAY-2021 08:47, No significant change Confirmed by Elier Uribe ([id number]) on 05/11/2021 4:34:06 AM Referred By: REFERRED SELF Confirmed By:Elier Uribe
== END 2021-05-09 18:20 | disposition home or self-care (01) | DRG 812 ==
LOC: ED 17:13 → SUATTDRO 22:08 → EDINP 22:08 → 2S 23:12

== ENCOUNTER 2021-06-02 05:27 | Observation (INO) ==
--- NOTE | 2021-05-31 12:04 | Anesthesiology Consultation ---
Date of Service May 31, 2021 Assessment & Plan (1) Encounter for pre-operative examination: Chart Review Chart Review: Acceptable Risk for Surgery (pending anesthesia evaluation DOS ) and Patient NOT seen in Pre Admission Testing - Check BSG AM DOS -Case discussed with Dr. Abreu- pt can proceed as scheduled Per nursing assessment 05/31/2021, patient denies any recent travel. No known Covid infection in the past 90 days. No known Covid positive contacts or Covid related symptoms. Patient is not vaccinated for Covid. 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 Pt admitted to [facility] 05/07/21 to 05/09/21. Was noted to have elevated troponin while admittedfelt likely secondary to supply demand mismatch with borderline LVH and tachycardia. CT of chest showed no PE but did show lung mass. Patient continues work-up for right upper lobe lung mass. Will probably require catheterization at some point but if she needs stents that would place her on dual antiplatelet therapy for 6 months to a year and could get in the way of her continuing work- up and treatment of her lung cancer. We will wait to see how work-up turns out and can decide on further diagnostics/treatment at that point. We will continue to treat her medically at this time. Kidney function stable. Follow-up in 2 weeks for nurse visit blood pressure check. EKG was found to have WPW pattern on it with preexcitation. We will hold off on referral to electrophysiology at this point until she gets likely malignancy worked up. Follow-up in 1 month. Per [facility] Discharge Summary 05/09/21= Presented to ER with worsening SOB and PAGAN -had been seen by cardiology and had abnormal EKGsent to ER for evaluation. CTA of chest showed right upper lobe nodule concerning for primary lung cancer or metastatic disease. EKG showing Dwuqf-Pmmpnbvgq-Aiyhd and elevated troponins. Cardiology consultedfeel there is no ACS at this time. Had echo while admitted. Will likely need ablation in the long-term determinate axis pathway for WPW. DOEimproved after receiving duo nebs. Elevated troponin likely demand ischemia. Recommend PFTs in the future.Elevated troponin levelcardiology believes hat elevated troponin is secondary to supply demand mismatch as she has borderline LVH, sinus tachycardia, and anemia present. Mass on lung- Will need bronchoscopy in future for definitive diagnosis.Anemialabs indicate iron deficient anemia. Given IV iron. Discharged on p.o. ferrous sulfate. History Surgery Operation Date: 06/02/21 07:15 Proposed Procedures p Endobroncial Ultrasound Guided Bronchoscopy and Endobronicial Navigational Bronchoscopy with [place] CT for Marking - Gerard Spring MD Height/Weight Height: 5 ft 1 in Weight: 68.039 kg Allergies Allergy/AdvReac Type Severity Reaction Status Date / Time No Known Allergies Allergy Mild Verified 05/31/21 09:49 Medications Home Medications Medication Instructions Recorded Confirmed Last Taken ferrous sulfate 325 mg (65 mg 325 mg PO QAM 30 Days #30 tab 05/09/21 05/31/21 Unknown iron) tablet,delayed release polyethylene glycol 3350 17 gram 17 g PO DAILY PRN 30 Days #30 ea 05/09/21 05/31/21 Unknown oral powder packet (Miralax) albuterol sulfate 90 mcg/actuation 2 puff INHALATION Q6H PRN #8.5 g 05/20/21 05/31/21 Unknown aerosol inhaler aspirin 81 mg tablet,delayed 81 mg PO QAM 05/20/21 05/31/21 Unknown release (Adult Low Dose Aspirin) atorvastatin 40 mg tablet (Lipitor) 40 mg PO QAM 05/31/21 05/31/21 Unknown losartan 25 mg tablet 25 mg PO QAM 05/31/21 05/31/21 Unknown metformin 500 mg tablet 500 mg PO BID 05/31/21 05/31/21 Unknown metoprolol succinate 25 mg 25 mg PO QAM 05/31/21 05/31/21 Unknown tablet,extended release 24 hr Past Medical History Medical History Anemia Chronic obstructive pulmonary disease rare res inh use Cough Diabetes mellitus, type 2 PAGAN (dyspnea on exertion) Hyperlipidemia Hypertension Mitral regurgitation Mild to moderate per 04/2021 ECHO Pulmonary nodules reason for procedure WPW (Luvxn-Dzditxogm-Zfaae syndrome) Dx'ed 05/07/21 prior to hospital admission- cardio consulted - confirmed WPW- had elevated troponins- felt likely demand ischemia- recommended outpatient follow up for possible ablation Past Family History Family History Other Cancer Heart disease Past Surgical History Surgical History History of tonsillectomy History of tooth extraction Social History Smoking Status: Former smoker tobacco type: cigarettes Do You Dip or Chew Tobacco: No Smoking End Date: 2 weeks ago Hx Alcohol Use: Yes Alcohol type: wine alcohol intake frequency: holidays/special occasions only Hx Substance Use: No substance use type: does not use Lab Results Anesthesia Preop Results Results Anesthesia Widget: WBC 8.66 K/uL (4.8-10.8) 05/21/21 Hgb 9.8 g/dL L 05/21/21 Hct 36.4 % (37.0-47.0) L 05/21/21 Plt 465 K/uL H 05/21/21 Na 137 mmol/L (136-145) 05/09/21 K 3.8 mmol/L (3.5-5.1) 05/09/21 Cl 106 mmol/L (98-107) 05/09/21 CO2 26 mmol/L (21-32) 05/09/21 BUN 10 mg/dl (7-18) 05/09/21 Creat 0.67 mg/dl (0.6-1.2) 05/09/21 Glucose Level 131 mg/dl (70-99) H 05/09/21 PT 10.9 Seconds (9.0-12.0) 05/07/21 PTT 27.6 Seconds (21.0-31.0) 05/07/21 INR 1.1 (0.9-1.1) 05/07/21 Lab Comments: Anemia stable from 05/07/21 Testing Electrocardiogram Date: 05/09/21 Findings: + NSR @ (74 bpm) Evffs-Uznhwunql-Bvwsu pattern. Nonspecific ST abnormality. Prolonged QT. When compared to EKG from May 08, 2021no significant change was found per cardio. Chest X-Ray Date: 05/07/21 Wedge-shaped opacity in the right middle lobe likely represents atelectasis, superimposed aspiration/pneumonia cannot be excluded. Possible right upper lobe airspace opacity which may represent atelectasis, pneumonia, and/or aspiration. No evidence of pleural effusion or pneumothorax. Echocardiogram Date: 05/08/21 EF: 60-65% LV Function: normal RWMA: + none Other Findings: + LVH (Borderline/concentric) and + diastolic dysfunction (Grade 1) Valvular Disease: + MR (Mild to moderate) Left atrium mildly dilated. Borderline right atrial enlargement. Other Testing Chest CTA 05/07/2021 = Multiple pulmonary nodules. Large cystic, solid, and groundglass nodule in the right upper lobe. Correlation with prior imaging and oncologic history is recommended to exclude metastatic disease and or right upper lobe primary lung cancer. PET/CT scan 05/19/21= There is an approximately 7.5 x 5 cm mixed groundglass and solid mass lesion in the right upper lobe. This was FDG avid and highly concerning for neoplasm. A primary lung cancer is favored. Additional subcentimeter pulmonary nodules are scattered throughout both lungs. Although the majority of these are too small for PET characterization, the largest nodule in the right middle lobe was also demonstrably FDG avid. These likely represent pulmonary metastases. There are mildly enlarged and FDG avid mediastinal and hilar nodes concerning for metastatic involvement. Additionally, there are prominent and mildly FDG avid axillary and inguinal lymph nodes. These would be atypical for lung cancer and may be reactive. A lymphoproliferative disorder remains a differential consideration for these lesions but is considered much less likely in regards to the pulmonary findings. Emphysema. Heterogeneous liver with nodularity of the surface contour suggesting cirrhotic change.
[2021-06-02] MEDS ORDERED: LR 15ML/HR IV SCH (06:00)
--- NOTE | 2021-06-02 07:25 | History & Physical Bridge Note ---
Date of Service June 02, 2021 History & Physical Bridge Note I have examined the patient, reviewed the History & Physical and in the interval since the performance of the History & Physical I have noted the following changes of clinical significance: no changes noted
[2021-06-02] MEDS ORDERED: ROCURONIUM BROMIDE 10 MG/ML 5 ML VIAL IV ONE (07:26)
[2021-06-02] MEDS ORDERED: GLYCOPYRROLATE 0.2 MG/ML VIAL ONE (07:26)
[2021-06-02] MEDS ORDERED: LARYING-O-JET KIT (LTA) ONE (07:26)
[2021-06-02] MEDS ORDERED: DEXAMETHASONE SOD INJ 4 MG/ML VIAL ONE (07:26)
[2021-06-02] MEDS ORDERED: NEOSTIGMINE METHYLSULFATE 1 MG/ML 10ML VIAL ONE (07:26)
[2021-06-02] MEDS ORDERED: ONDANSETRON INJ 2 MG/ML 2 ML VIAL ONE (07:26)
[2021-06-02] MEDS ORDERED: PROPOFOL IV EMULSION 10 MG/ML 20 ML VIAL IV ONE (07:26)
[2021-06-02] MEDS ORDERED: LIDOCAINE 2% 2 ML VIAL/AMP(20MG/ML) INFIL ONE (07:26)
[2021-06-02] MEDS ORDERED: fentaNYL citrate 100 MCG/2 ML VIAL ONE (07:27)
[2021-06-02] MEDS ORDERED: MIDAZOLAM HCL 1 MG/ML 2ML VIAL ONE (07:27)
[2021-06-02] MEDS ORDERED: fentaNYL citrate 100 MCG/2 ML VIAL IV PRN (07:33)
[2021-06-02] MEDS ORDERED: ePHEDrine sulfate 50 MG/ML AMP IV PRN (07:33)
[2021-06-02] MEDS ORDERED: ATROPINE SULFATE 0.1 MG/ML 10ML SYR IV PRN (07:33)
[2021-06-02] MEDS ORDERED: METOPROLOL TARTRATE 1 MG/ML VIAL IV ONE (09:05)
--- NOTE | 2021-06-02 10:52 | Procedure Note ---
Procedure Note Date of Service June 02, 2021 Note PREOPERATIVE DIAGNOSIS: Right upper lobe PET avid mass with mediastinal and hilar adenopathy. POSTOPERATIVE DIAGNOSIS: Same as above PROCEDURE PERFORMED: EBUS and navigational bronchoscopy. Forcep biopsy of the right upper lobe mass, triple needle brush of the right upper lobe mass, 22- gauge FNA needle biopsy of the right upper lobe mass, and washings of the right upper lobe mass. Station 10 L , 7, 4R, 10 R, 11R completed. COMPLICATIONS: None readily apparent. INDICATION: Evaluate for malignancy. PROCEDURE: Informed consent was obtained from the patient and signed for the bronchoscopy procedure. All risks and benefits were discussed and patient agreed to proceed with the procedure. Timeout was performed prior to the procedure. A supraglottic airway was placed by the anesthesia staff after adequate sedation was achieved. I attempted to pass the EBUS scope through the supraglottic airway, but was unable to pass the scope. The patient did have a period of desaturation down to 65% and ultimately in the supraglottic airway was changed out to a size 8 endotracheal tube by the anesthesia staff. Patient was hemodynamically stable and saturations improved. The endobronchial ultrasound scope was inserted through the endotracheal tube. I performed sequential ultrasound inspection of the hilar and mediastinal lymph nodes. Biopsies were initiated on the contralateral side of the lung mass. Station 10 L, 7, 4R, 10 R and 11 R were biopsied. No significant bleeding was seen. The scope was withdrawn and regular bronchoscope was inserted. Registration with a forcep needle was performed in order to registered the navigational software.I performed a bilateral tracheobronchial tree inspection of the airways. No endobronchial masses were seen. I wedged into the right upper lobe and inserted the forcep. I was able to approximate mass with a forcep utilizing the navigational guidance software. Several biopsies were performed with the forcep of the right upper lobe mass. We then performed biopsies with a 22-gauge FNA needle. Biopsies were also performed with a triple needle brush. Some bleeding was encountered and was controlled with cold saline. Approximately 20 mL of bleeding was noted. Hemostasis was achieved. A washing was performed of the right upper lobe with 40 mL of saline. Roughly 20 mL of serosanguineous fluid was aspirated back. Secretions were suctioned clear. The bronchoscope was withdrawn. The patient was extubated per the anesthesia protocol. Rapid onsite pathology was available to review the slides. Atypical cells were noted on the triple needle brush is sent for stat biopsies from the right upper lobe mass. Recommendations: Follow cultures, cytology and biopsy results from the mediastinal/hilar lymph nodes and right upper lobe mass. Chest x-ray ordered to evaluate for pneumothorax. Coding CPT Codes Pulmonary/Thoracic - Pulmonary and Thoracic: 26967 Bronchoscopy, w/EBUS, 3+ mediastinal ([id number]) Pulmonary/Thoracic - Pulmonary and Thoracic: 36212 Navigational Bronchoscopy ([id number]) Pulmonary/Thoracic - Pulmonary and Thoracic: 63352 Bronchoscopy w/ needle bx ([id number]) Pulmonary/Thoracic - Pulmonary and Thoracic: 89012 Dx bronchoscopy/brush ([id number]) Pulmonary/Thoracic - Pulmonary and Thoracic: 99221 Bronchoscopy w/ transbronchial lung bx ([id number]) [facility] Codes (Charges) Pulmonary/Thoracic Procedure 1: Pulmonary and Thoracic: 05168 Bronchoscopy, w/EBUS, 3+ mediastinal Procedure 2: Pulmonary and Thoracic: 49751 Navigational Bronchoscopy Procedure 3: Pulmonary and Thoracic: 57538 Bronchoscopy w/ needle bx Procedure 4: Pulmonary and Thoracic: 63596 Dx bronchoscopy/brush Procedure 5: Pulmonary and Thoracic: 59603 Bronchoscopy w/ transbronchial lung bx
[2021-06-02] MEDS ORDERED: ALBUT/IPRATROP 3MG/0.5MG NEB 3 ML VIAL NEB STA (11:19)
--- NOTE | 2021-06-02 12:44 | Anesthesiology Progress Note ---
Date of Service June 02, 2021 Anesthesia Post Procedure Vital Signs Vital Signs: Temp Pulse Pulse Resp BP BP Pulse Ox 06/02/21 12:35 37.2 C 89 22 126/58 L 96 06/02/21 12:05 36.9 C 88 20 125/58 L 92 06/02/21 11:50 37.0 C 94 H 28 H 115/48 L 92 06/02/21 11:40 103 H 21 128/58 L 81 L 06/02/21 11:31 18 91 06/02/21 11:30 84 26 H 129/60 97 06/02/21 11:20 89 21 129/60 91 06/02/21 11:10 92 H 21 129/85 90 06/02/21 11:00 103 H 19 129/58 L 90 06/02/21 10:50 101 H 34 H 132/67 92 06/02/21 10:43 36.8 C 109 H 25 H 152/82 H 90 06/02/21 05:50 36.9 C 105 H 22 177/86 H 95 Transfer of Care Handoff Completed per policy Notes Mental Status: alert / awake / arousable and participated in evaluation Patient Amnestic to Procedure: Yes Nausea / Vomiting: adequately controlled Pain: adequately controlled Airway Patency, RR, SpO2: stable & adequate BP & HR: stable & adequate Hydration State: stable & adequate Anesthetic Complications: no major complications apparent
--- NOTE | 2021-06-02 12:46 | History & Physical Report ---
Date of Service June 02, 2021 Assessment & Plan (1) Hypoxia: Plan: Post bronchoscopy Hypoxia without respiratory failure - DDX: post procedure vs. post biopsy bleeding vs. pneumothorax vs. underlying COPD - Post procedure likely with her underlying pulmonary disease- should resolve - 2 step in the am for possible oxygen use at home - no hemoptysis or dyspnea- follow clinically- if hemoptysis occurs- cough suppressant and supportive care - Continue her nebulizers - methylpred 40 IV q12 (2) Mass of lung: Plan: As per HPI await pathology results from navigational bronch with EBUS and biopsy - supportive care (3) Anemia: Plan: Iron deficient per history - continue ferrous sulfate (4) WPW (Wujyb-Hawtfpgho-Aetuu syndrome): Plan: Recently diagnosed in April- regarding EP follow up- plan with primary malignancy workup priority - was started on metoprolol and denies any palptiations or chest discomfort (5) Pulmonary nodules/lesions, multiple: Plan: As above (6) Mitral regurgitation: Plan: As above (7) Diabetes mellitus, type 2: Plan: Hold Metformin - with steroid dosing likely to increase BG - Start aspart insulin sliding scale - 100-140 with CF 20, hold on ratio at this time - Goal <180 History of Present Illness Primary Care Provider: NO PCP 66 YOF with past medical history of: WPW, Mitral regurgitation, dyspnea, DM II (on metformin), FE deficiency anemia. Patient was previously admitted in April 2021 for dyspnea and upon evaluation at that time via CT scan she was noted to have multiple pulmonary nodules, she was a previous smoker who reportedly quit. Smoking history of 40 years 1-1.5 packs per day. Patient subsequently underwent PET scan and evaluation with Pulmonary to perform navigational bronchoscopy with biposy that was performed today as outpatient. Post recovery the patient was noted to require oxygen support to maintain SPO2 > 92% with hypoxemia noted on room air. She has not had PFTs performed but likely has underlying COPD based on her imaging. Pulmonary staff notified hosptialist for admission for observation secondary to her oxygen support need at this time. Patient was evaluated in the PACU. Will admit to medical telemetry and continue to follow her oxygenation needs. Solumederol 40mg IV q12, continue her inhalers. Patient awoke well after sedation. Post procedure CXR does not reveal any PTX. Overall patient is in good spirits and denies any dyspnea or chest discomfort. Patient has COVID test from that is: NEGATIVE Allergies Allergy/AdvReac Type Severity Reaction Status Date / Time No Known Allergies Allergy Mild Verified 06/02/21 05:52 Home Medications Medication Instructions Recorded Confirmed Type ferrous sulfate 325 mg (65 mg 325 mg PO QAM 30 Days #30 tab 05/09/21 06/02/21 Rx iron) tablet,delayed release polyethylene glycol 3350 17 gram 17 g PO DAILY PRN 30 Days #30 ea 05/09/21 06/02/21 Rx oral powder packet (Miralax) albuterol sulfate 90 mcg/actuation 2 puff INHALATION Q6H PRN #8.5 g 05/20/21 Rx aerosol inhaler aspirin 81 mg tablet,delayed 81 mg PO QAM 05/20/21 06/02/21 History release (Adult Low Dose Aspirin) atorvastatin 40 mg tablet (Lipitor) 40 mg PO QAM 05/31/21 06/02/21 History losartan 25 mg tablet 25 mg PO QAM 05/31/21 06/02/21 History metformin 500 mg tablet 500 mg PO BID 05/31/21 06/02/21 History metoprolol succinate 25 mg 25 mg PO QAM 05/31/21 06/02/21 History tablet,extended release 24 hr Past Med/Surg History Medical History (Updated 06/02/21 @ 12:46 by DARLENE Lang) Anemia Chronic obstructive pulmonary disease rare res inh use Cough Diabetes mellitus, type 2 PAGAN (dyspnea on exertion) Hyperlipidemia Hypertension Mitral regurgitation Mild to moderate per 04/2021 ECHO Pulmonary nodules reason for procedure WPW (Dkgbk-Mgkvqeccn-Khdlg syndrome) Dx'ed 05/07/21 prior to hospital admission- cardio consulted - confirmed WPW- had elevated troponins- felt likely demand ischemia- recommended outpatient follow up for possible ablation Surgical History History of tonsillectomy History of tooth extraction Family History Other Cancer Heart disease Social History Smoking Status: Former smoker Smoking End Date: 2 weeks ago; Second Hand Exposure: No; Do You Dip or Chew Tobacco: No; Tobacco Cessation Education Requested by Patient: No Hx Alcohol Use: Yes Alcohol type: wine Hx Substance Use: No Preferred Language: French Communication Ability: Effective Employee Development Manager Required: No Beliefs That Will Affect Care: None Current Living Situation: Alone Other Information That Helps Us Care for You: No Feels Safe at Home: Yes Safety Concerns: Feels Safe At This Time Assistive Devices: None Review of Systems Review of Systems: REVIEW OF SYSTEMS: Constitutional: No fever, sweats or chills Eyes: No diplopia, no worsening or blurred vision ENT: normal hearing, no trouble swallowing Respiratory: (+) dyspnea with exertion, cough, NO sputum, dyspnea at rest Cardiovascular: No chest pain, tightness or palpitations Abdomen: No pain, nausea, vomiting, diarrhea or constipation Musculoskeletal: No joint pain, calf pain, swelling Neurologic: No weakness, numbness/tingling, or balance problems Psychiatric: No anxiety or depression Skin: No rash or itch Physical Exam Physical Exam: PHYSICAL EXAM: General: awake, alert, no apparent distress Head: Normocephalic, atraumatic ENT: PERRL, EOMI, no pharyngeal exudate, mucous membranes moist Neuro: AAO x 3, speech clear and appropriate, strength intact bilaterally 5/5, sensation intact and equal all extremities and dermatomes, no pronator drift Chest: equal rise and fall of the chest, no accessory muscle use, decreased air movement in the bases with expiratory wheeze, on 2LNC, no subq emphysema Cardiac: Regular rate and rhythm, telemetry reviewed, skin warm dry, cap refill <3 seconds, peripheral pulses +2 no JVD, no murmur, no edema GI: NABS x 4 quadrants, soft, nontender to palpation, no rebound, guarding or tenderness : Spontaneously voiding, no pain, no CVA tenderness, Extremities: Normal inspection, no peripheral edema or erythema, calfs nontender to palpation Psych: Normal mood and affect Skin: no rash or erythema Results & Data Results & Data ([facility]) Vital Signs (Past 12 Hours) Vital Signs Temp Pulse Pulse Resp BP BP Pulse Ox 06/02/21 11:50 37.0 C 94 H 28 H 115/48 L 92 06/02/21 11:40 103 H 21 128/58 L 81 L 06/02/21 11:31 18 91 06/02/21 11:30 84 26 H 129/60 97 06/02/21 11:20 89 21 129/60 91 06/02/21 11:10 92 H 21 129/85 90 06/02/21 11:00 103 H 19 129/58 L 90 06/02/21 10:50 101 H 34 H 132/67 92 06/02/21 10:43 36.8 C 109 H 25 H 152/82 H 90 06/02/21 05:50 36.9 C 105 H 22 177/86 H 95 Laboratory Results Abnormal lab results 06/02/21 06/02/21 Range/Units 05:58 10:51 POC Glucose 140 H 157 H (70-99) mg/dl Diagnostic Findings Service Date:05/19/21 PET/CT CLINICAL HISTORY: Pulmonary nodule. COMPARISON STUDY: Chest CT dated 05/07/2021. Abdominal CT dated 05/09/2021. TECHNIQUE: One hour following the IV administration of 14.66 mCi of F-18 FDG, PET/CT examination was performed from the orbital meatal line through the bony pelvis. Noncontrast CT is performed for the purposes of anatomic correlation and attenuation correction. Note that this does not reflect a diagnostic CT examination. Images were reviewed on a separate [employer] independent workstation. Fused images were obtained. Standard uptake values reported are maximum values within the region of interest expressed in gm/mL. FINDINGS: PET FINDINGS: Head and neck: There is expected physiologic activity within the visualized brain parenchyma at the skull base and the salivary glands. Thorax: Evaluation of the thorax demonstrates expected physiologic myocardial activity. There is an approximately 7.5 x 5 cm mixed groundglass and solid mass lesion in the right upper lobe. This is FDG avid with a maximum SUV of 3.2. Numerous additional subcentimeter pulmonary nodules are seen throughout the right lung. The largest nodule in the right middle lobe on image #80 measures 0.9 cm and demonstrates a maximum SUV of 1.4 the majority of these nodules are t oo small for PET characterization. There are FDG avid right hilar lymph nodes with a maximum SUV of 3.0. FDG avid left hilar nodes demonstrate a maximum SUV of 3.2. The nodes themselves are not well-visualized on the low-dose CT images. A 1.9 x 1.9 cm pretracheal node on image #56 was not demonstrably FDG avid. A precarinal node on image #64 measuring 2.1 x 1.6 cm is FDG avid with a maximum SUV of 3.2. There are prominent and mildly FDG avid bilateral axillary lymph nodes. A right axillary node on image #49 measures 1.3 x 0.8 cm and demonstrates a maximum SUV of 1.6. Abdomen and pelvis: There is expected activity within the liver, spleen, kidneys, renal collecting system, and bladder. Low-level bowel activity is likely within physical limits. There are mildly enlarged and FDG avid bilateral inguinal lymph nodes. A right inguinal node on image #203 measures 1.5 x 1.1 cm in maximum SUV of 2.6. A 13 mm left adrenal nodule seen on image #127 was not demonstrably FDG avid. Unenhanced CT images: Visualized brain parenchyma the skull base is normal in appearance. Orbital contents are normal as visualized. A 1.4 cm retention cyst is noted in the left maxillary sinus. The imaged paranasal sinuses are otherwise clear. The mastoid air cells are well pneumatized. The salivary and thyroid glands are within normal limits. No cervical lymphadenopathy is seen. The thoracic aorta is normal in caliber. The heart is normal in size and without pericardial effusion. A moderate hiatal hernia is observed. Emphysematous change is noted. No airspace consolidation typical for pneumonia or pleural effusion is identified. The unenhanced spleen, pancreas, right adrenal gland, gallbladder, and kidneys are grossly unremarkable. The abdominal aorta is normal in caliber noting moderate atherosclerotic calcification. There is no bowel obstruction. No upper abdominal, retroperitoneal, or pelvic sidewall adenopathy is seen. The bladder, uterus, and adnexa are normal as visualized. The skeletal structures are osteopenic. There are bilateral pars defects at L5. No destructive bony lesion is identified. IMPRESSION: 1. There is an approximately 7.5 x 5 cm mixed groundglass and solid mass lesion in the right upper lobe. This was FDG avid and highly concerning for neoplasm. A primary lung cancer is favored. 2. Additional subcentimeter pulmonary nodules are scattered throughout both lungs. Although the majority of these are too small for PET characterization, the largest nodule in the right middle lobe was also demonstrably FDG avid. These likely represent pulmonary metastases. 3. There are mildly enlarged and FDG avid mediastinal and hilar nodes concerning for metastatic involvement. 4. Additionally, there are prominent and mildly FDG avid axillary and inguinal lymph nodes. These would be atypical for lung cancer and may be reactive. A lymphoproliferative disorder remains a differential consideration for these lesions but is considered much less likely in regards to the pulmonary findings. 5. Emphysema. 6. Heterogeneous liver with nodularity of the surface contour suggesting cirrhotic change. 7. Additional findings as above. XR chest 1V portable CLINICAL HISTORY: post RUL bx TECHNIQUE: Single frontal radiograph of the chest was obtained. Comparison: Comparison is made to chest 2 views 05/07/2021 FINDINGS: No lines and tubes are seen. Cardiomegaly is noted. Right apical opacity may represent postbiopsy hemorrhage. No evidence of pleural effusion or pneumothorax. IMPRESSION: Expected postbiopsy changes with right upper lobe hemorrhage but no evidence of pneumothorax. ACT 112: Negative or not required by law. Medications Administered Home Medications ferrous sulfate 325 mg (65 mg iron) tablet,delayed release 325 mg PO QAM 30 Days #30 tab 05/09/21 [Rx Confirmed 06/02/21] polyethylene glycol 3350 17 gram oral powder packet (Miralax) 17 g PO DAILY PRN 30 Days #30 ea 05/09/21 [Rx Confirmed 06/02/21] albuterol sulfate 90 mcg/actuation aerosol inhaler 2 puff INHALATION Q6H PRN #8.5 g 05/20/21 [Rx Confirmed 06/02/21] aspirin 81 mg tablet,delayed release (Adult Low Dose Aspirin) 81 mg PO QAM 05/20/21 [History Confirmed 06/02/21] atorvastatin 40 mg tablet (Lipitor) 40 mg PO QAM 05/31/21 [History Confirmed 06/02/21] losartan 25 mg tablet 25 mg PO QAM 05/31/21 [History Confirmed 06/02/21] metformin 500 mg tablet 500 mg PO BID 05/31/21 [History Confirmed 06/02/21] metoprolol succinate 25 mg tablet,extended release 24 hr 25 mg PO QAM 05/31/21 [History Confirmed 06/02/21] Active Medications Atropine Sulfate (Atropine Sulfate 0.1 Mg/Ml 10ml Syr) 0.5 mg IV Q1M PRN PRN Reason: PACU Use-HR<40 &/or Bradycardi Stop: 06/02/21 15:33 Ephedrine Sulfate (Ephedrine Sulfate 50 Mg/Ml Amp) 5 mg IV Q5M PRN PRN Reason: PACU Use Only-SBP<90 mmHg Stop: 06/02/21 15:33 Fentanyl Citrate (Fentanyl Citrate 100 Mcg/2 Ml Vial) 50 mcg IV Q5M PRN PRN Reason: PACU Use Only-Pain Stop: 06/02/21 15:33 Lactated Ringer's (Lr) 1,000 mls @ 15 mls/hr IV .Q24H EREN Stop: 06/03/21 05:59 Last Admin: 06/02/21 06:45 Dose: 15 mls/hr Documented by: ECG Additional Comments: Not performed- no acute need Code Status & VTE Plan Code Status CODE: FULL VTE: SCDs, hold chemo-prophy at this time Supervising Physician Co-Signing Physician Notes Patient was seen and examined independently I discussed the case with Ricardo COLON I reviewed pertinent past medical social family history and also the plan of car e and agree with the plan of care. Called to admit patient from ambulatory surgical unit as post procedure hypoxia. Patient did bronchoscopy for right upper lung mass. Patient was seen and is in stable condition on supplemental oxygen. She is in no respiratory distress Patient will be observed overnight arrangements for home oxygen likely will be needed as per recommendations from pulmonary medicine steroids will be employed continuing her Metformin and sliding scale insulin for possible hyperglycemia induced by steroids Any exceptions will be noted below PG Care Time/CCT Total # of Minutes Spent Total Time Spent with Patient: Total time spent is greater than 50% in coordination of care (as documented) at patient's floor/unit and/or counseling patient: Coding Level of Care Code INT OBSERVATION CARE 50M LVL 2 Diagnoses Hypoxia R09.02 Mass of lung R91.8 Anemia D64.9 Anemia type: unspecified type WPW (Qnevd-Rmvqpvwhq-Ofikh syndrome) I45.6 Pulmonary nodules/lesions, multiple R91.8 Mitral regurgitation I34.0 Diabetes mellitus, type 2 E11.9 (1) Anemia Anemia type: unspecified type Qualified Code(s): D64.9 - Anemia, unspecified
--- NOTE | 2021-06-02 13:32 | XRay Report ---
XR chest 1V portable CLINICAL HISTORY: post RUL bx TECHNIQUE: Single frontal radiograph of the chest was obtained. Comparison: Comparison is made to chest 2 views 05/07/2021 FINDINGS: No lines and tubes are seen. Cardiomegaly is noted. Right apical opacity may represent postbiopsy hem orrhage. No evidence of pleural effusion or pneumothorax. IMPRESSION: Expected postbiopsy changes with right upper lobe hemorrhage but no evidence of pneumothorax. ACT 112: Negative or not required by law. Electronically signed by: Lamont Oshea M.D. 06/02/2021 1:31 PM
[2021-06-02] MEDS ORDERED: GLUCAGON FOR INJ 1 MG VIAL SQ PRN (13:57)
[2021-06-02] MEDS ORDERED: CARBOHYDRATES FOR HYPOGLYCEMIA PO PRN (13:57)
[2021-06-02] MEDS ORDERED: DEXTROSE 50% 50 ML SYRINGE IV PRN (13:57)
[2021-06-02] MEDS ORDERED: ONDANSETRON INJ 2 MG/ML 2 ML VIAL IV PRN (13:57)
[2021-06-02] MEDS ORDERED: ALUMINUM/MAGNESIUM SUSP 30 ML UDC PO PRN (13:57)
[2021-06-02] MEDS ORDERED: GLUCOSE 10 TABS/TUBE PO PRN (13:57)
[2021-06-02] MEDS ORDERED: POLYETHYLENE (MIRALAX) 17 GM PACK PO PRN (13:57)
[2021-06-02] MEDS ORDERED: ACETAMINOPHEN 325 MG TAB PO PRN (13:57)
[2021-06-02] MEDS ORDERED: ALBUTEROL HFA 8 GM INHALER INH PRN (13:57)
[2021-06-02] MEDS ORDERED: GLUCOSE 40% GEL 15 GM TUBE PO PRN (13:57)
[2021-06-02] MEDS ORDERED: ALBUTEROL 0.083% NEBU SOLN 3 ML VIAL NEB PRN (14:00)
[2021-06-02] MEDS: methylPREDNISolone 40 MG in SYRINGE 0 ML IV SCH ×2 (15:59→21:44)
[2021-06-02] MEDS: INSULIN ASPART 100 UNITS/ML VIAL SC SCH ×2 (18:01→21:45)
[2021-06-02] MEDS: ALBUT/IPRATROP 3MG/0.5MG NEB 3 ML VIAL NEB SCH ×2 (20:41→21:16)
[2021-06-02] MEDS: metFORMIN HCL 500 MG TAB PO SCH (21:45)
[2021-06-03 06:43] LABS: Hemoglobin 9.3 g/dL (12.0-16.0); Mean Corpuscular Hemoglobin 22.4 pg (25-34); Mean Corpuscular Hgb Conc 28.2 g/dL (32-36); Mean Corpuscular Volume 79.3 fL (80-100); Mean Platelet Volume 10.1 fL (7.4-10.4); Platelet Count 322 K/uL (130-400); RDW Coefficient of Variation 27.8 % (11.5-14.5); RDW Standard Deviation 78.3 fL (36.4-46.3); Red Blood Count 4.16 M/uL (4.2-5.4); White Blood Count 5.78 K/uL (4.8-10.8)
[2021-06-03 06:48] LABS: Est GFR (African American) 102.2 ml/min; Potassium 4.2 mmol/L (3.5-5.1)
[2021-06-03 06:49] LABS: BUN Creatinine Ratio 19.7 (10-20); Calcium 8.9 mg/dl (8.5-10.1); Creatinine Clr Calc Pharmacy 69.5 ml/min; Est GFR (Non-African American) 88.1 ml/min
[2021-06-03] MEDS: ALBUT/IPRATROP 3MG/0.5MG NEB 3 ML VIAL NEB SCH ×3 (07:13→14:36)
[2021-06-03 07:14] LABS: Estimated Average Glucose 128 mg/dl; Hemoglobin A1C 6.1 % (4.5-5.6)
--- NOTE | 2021-06-03 07:37 | XRay Report ---
XR chest 1V portable HISTORY: 66 years-old Female hypoxia acute hypoxia COMPARISON: Chest radiograph 06/02/2021, CTA chest 05/07/2021 TECHNIQUE: Portable AP view of the chest FINDINGS: Cardiac silhouette is enlarged, unchanged. Consolidative masslike opacity of the right lung apex rede monstrated. Mild ill-defined bibasilar densities are also again noted. No pneumothorax, large pleural effusion or overt pulmonary edema. Mild chronic interstitial coarsening. Degenerative changes of the shoulders and spine. IMPRESSION: 1. Irregular masslike opacity of the right lung apex redemonstrated. No pneumothorax. 2. Cardiomegaly. 3. Bibasilar nodular opacities are better characterized on the comparison CTA of the chest. ACT 112: Negative or not required by law. The above report was generated using voice recognition software. It may contain grammatical, syntax o r spelling errors. Electronically signed by: Maulik Servin M.D. 06/03/2021 7:36 AM
[2021-06-03] MEDS ORDERED: METOPROLOL SUCC 25MG EXT REL TAB PO SCH (09:00)
[2021-06-03] MEDS ORDERED: ASPIRIN 81 MG ECTAB PO SCH (09:00)
[2021-06-03] MEDS ORDERED: FERROUS SULFATE 325 MG TAB PO SCH (09:00)
[2021-06-03] MEDS ORDERED: LOSARTAN POTASSIUM 25 MG TAB PO SCH (09:00)
[2021-06-03] MEDS ORDERED: ATORVASTATIN 40 MG TAB PO SCH (09:00)
[2021-06-03] MEDS: metFORMIN HCL 500 MG TAB PO SCH (09:43)
[2021-06-03] MEDS: INSULIN ASPART 100 UNITS/ML VIAL SC SCH ×2 (09:45→12:11)
[2021-06-03] MEDS: methylPREDNISolone 40 MG in SYRINGE 0 ML IV SCH (12:01)
--- NOTE | 2021-06-03 12:59 | Discharge Summary ---
Date of Service June 03, 2021 Admission HPI Per Admitting Provider 66 YOF with past medical history of: WPW, Mitral regurgitation, dyspnea, DM II (on metformin), FE deficiency anemia. Patient was previously admitted in April 2021 for dyspnea and upon evaluation at that time via CT scan she was noted to have multiple pulmonary nodules, she was a previous smoker who reportedly quit. Smoking history of 40 years 1-1.5 packs per day. Patient subsequently underwent PET scan and evaluation with Pulmonary to perform navigational bronchoscopy with biposy that was performed today as outpatient. Post recovery the patient was noted to require oxygen support to maintain SPO2 > 92% with hypoxemia noted on room air. She has not had PFTs performed but likely has underlying COPD based on her imaging. Pulmonary staff notified hosptialist for admission for observation secondary to her oxygen support need at this time. Patient was evaluated in the PACU. Will admit to medical telemetry and continue to follow her oxygenation needs. Solumederol 40mg IV q12, continue her inhalers. Patient awoke well after sedation. Post procedure CXR does not reveal any PTX. Overall patient is in good spirits and denies any dyspnea or chest discomfort. Patient has COVID test from [id number] that is: NEGATIVE Admission Exam Per Admitting Provider PHYSICAL EXAM: General: awake, alert, no apparent distress Head: Normocephalic, atraumatic ENT: PERRL, EOMI, no pharyngeal exudate, mucous membranes moist Neuro: AAO x 3, speech clear and appropriate, strength intact bilaterally 5/5, sensation intact and equal all extremities and dermatomes, no pronator drift Chest: equal rise and fall of the chest, no accessory muscle use, decreased air movement in the bases with expiratory wheeze, on 2LNC, no subq emphysema Cardiac: Regular rate and rhythm, telemetry reviewed, skin warm dry, cap refill <3 seconds, peripheral pulses +2 no JVD, no murmur, no edema GI: NABS x 4 quadrants, soft, nontender to palpation, no rebound, guarding or tenderness : Spontaneously voiding, no pain, no CVA tenderness, Extremities: Normal inspection, no peripheral edema or erythema, calfs nontender to palpation Psych: Normal mood and affect Skin: no rash or erythema Principal Diagnosis Post-procedure hypoxia Lung mass Discharge Exam Vital Signs Temp Pulse Pulse Pulse Pulse Pulse Resp 06/03/21 09:40 11/18/21 09:29 115 H 18 06/03/21 09:00 37 C 98 H 20 06/03/21 08:50 148 H 118 H 109 H 06/03/21 07:15 90 16 06/03/21 06:33 36.7 C 96 H 16 06/02/21 23:34 36.8 C 90 18 06/02/21 21:30 68 06/02/21 21:20 80 18 06/02/21 20:26 36.7 C 89 16 06/02/21 18:57 36.7 C 78 22 06/02/21 17:28 37.1 C 104 H 20 06/02/21 15:23 37.1 C 96 H 25 H 06/02/21 14:31 93 H 20 06/02/21 13:47 92 H 22 06/02/21 12:59 37.1 C 87 22 Resp Resp Resp BP Pulse Ox Pulse Ox Pulse Ox 06/03/21 09:40 95 06/03/21 09:29 95 06/03/21 09:00 127/58 L 92 06/03/21 08:50 24 18 18 90 98 06/03/21 07:15 100 06/03/21 06:33 145/66 H 96 06/02/21 23:34 137/64 100 06/02/21 21:30 06/02/21 21:20 100 06/02/21 20:26 150/72 H 99 06/02/21 18:57 144/57 H 100 06/02/21 17:28 150/73 H 90 06/02/21 15:23 145/67 H 97 06/02/21 14:31 127/67 96 06/02/21 13:47 123/62 94 06/02/21 12:59 124/57 L 97 Pulse Ox 06/03/21 09:40 06/03/21 09:29 06/03/21 09:00 06/03/21 08:50 95 06/03/21 07:15 06/03/21 06:33 06/02/21 23:34 06/02/21 21:30 06/02/21 21:20 06/02/21 20:26 06/02/21 18:57 06/02/21 17:28 06/02/21 15:23 06/02/21 14:31 06/02/21 13:47 06/02/21 12:59 Intake and Output 06/02/21 06/03/21 06/03/21 22:59 06:59 14:59 Intake Total 235.25 / 935.25 Balance 235.25 / 935.25 Intake: IV 235.25 / 235.25 Lactated Ringer's 1,000 ml @ 15 235.25 / 235.25 mls/hr IV .Q24H EREN Rx#: [id number] Other: # Unmeasured Voids 1 Weight 71.5 kg Weight Measurement Method Standing Scale GENERAL: 66 yo Well-developed, well-nourished WF. NAD. LUNGS: Clear to auscultation bilaterally. No accessory muscle use. No W/R/R. CARDIOVASCULAR: Tachy but regular. No M/G/R. No JVD. ABDOMEN: Soft, non-tender and non-distended. No palpable masses. Bowel sounds normoactive x 4 quad. EXTREMITIES: No edema. Non-tender. Peripheral pulses +2/4. PSYCHIATRIC: Cooperative. Appropriate mood and affect. SKIN: Warm, dry, intact. No rashes or lesions. Discharge Data Allergies Allergy/AdvReac Type Severity Reaction Status Date / Time No Known Allergies Allergy Mild Verified 06/02/21 05:52 Consultations Pulmonolgy consulted, see by Joe Beavers PA-C, please see his consult note for further details. Procedures Performed Operation Date: 06/02/21 07:30 Actual Procedures p Endobroncial Ultrasound Guided Bronchoscopy and Endobronicial Navigational Bronchoscopy with Verans CT for Marking(Not Applicable) - Gerard Spring MD Ordered Studies Chest X-Ray 06/02/21 10:45 XR chest 1V portable CLINICAL HISTORY: post RUL bx TECHNIQUE: Single frontal radiograph of the chest was obtained. Comparison: Comparison is made to chest 2 views 05/07/2021 FINDINGS: No lines and tubes are seen. Cardiomegaly is noted. Right apical opacity may represent postbiopsy hemorrhage. No evidence of pleural effusion or pneumothorax. IMPRESSION: Expected postbiopsy changes with right upper lobe hemorrhage but no evidence of pneumothorax. ACT 112: Negative or not required by law. Electronically signed by: Lamont Oshea M.D. 06/02/2021 1:31 PM Chest X-Ray 06/03/21 04:00 XR chest 1V portable HISTORY: 66 years-old Female hypoxia acute hypoxia COMPARISON: Chest radiograph 06/02/2021, CTA chest 05/07/2021 TECHNIQUE: Portable AP view of the chest FINDINGS: Cardiac silhouette is enlarged, unchanged. Consolidative masslike opacity of the right lung apex redemonstrated. Mild ill-defined bibasilar densities are also again noted. No pneumothorax, large pleural effusion or overt pulmonary edema. Mild chronic interstitial coarsening. Degenerative changes of the shoulders and spine. IMPRESSION: 1. Irregular masslike opacity of the right lung apex redemonstrated. No pneumothorax. 2. Cardiomegaly. 3. Bibasilar nodular opacities are better characterized on the comparison CTA of the chest. ACT 112: Negative or not required by law. The above report was generated using voice recognition software. It may contain grammatical, syntax or spelling errors. Electronically signed by: Maulik Servin M.D. 06/03/2021 7:36 AM Hospital Course (1) Hypoxia: Post bronchoscopy hypoxia without respiratory failure - DDX: post procedure vs. post biopsy bleeding vs. pneumothorax vs. underlying COPD - Post procedure likely with her underlying pulmonary disease - no hemoptysis or dyspnea - Continue her nebulizers - methylpred 40 IV q12 initiated - transition to tapering course of Prednisone to complete upon discharge - two-step pulse oximetry study completed, pt did not desaturate below 90% with ambulation - She subsequently does not qualify for home O2 (2) Mass of lung: As per HPI await pathology results from navigational bronch with EBUS and biopsy - supportive care (3) Anemia: Iron deficient per history - continue ferrous sulfate (4) WPW (Aghix-Nljdyyrmx-Ycxmj syndrome): Recently diagnosed in April- regarding EP follow up- plan with primary malignancy workup priority - was started on metoprolol and denies any palptiations or chest discomfort (5) Pulmonary nodules/lesions, multiple: As above (6) Mitral regurgitation: As above (7) Diabetes mellitus, type 2: - Metformin held - with steroid dosing likely to increase BG - Started aspart insulin sliding scale while hospitalized - 100-140 with CF 20 - Blood sugars ranging 160-250 - Would recommend resumption of metformin and monitoring blood sugars at home - Anticipate higher blood sugars while on Prednisone At this time, pt is medically stable for discharge. Pt has established care recently with a PCP (end of April), as well as pulmonology and cardiology. Recommend f/u with these individuals upon discharge. Follow discharge instructions. Tapering course of Prednisone has been sent to her pharmacy. Total Time Total Time Spent Total Time Spent (In Minutes): <30 minutes Discharge Plan Discharge Items Patient Disposition: Home - Self-Care Reason For Visit: PULMONARY NODULES Discharge Diagnosis: Right lung mass Activity: Per Instructions section Lifting: Gradually increase as tolerated Sexual Activity: When tolerated Exercise/Sports: Rest today Non-emergency contact: Primary Care Provider and Supervisor [employer] [facility] Call non-emergency contact if: you have a fever Follow-up/Referrals: Gerard Spring MD [Physician] - (Patient is scheduled to see Dr. Spring 06/22/2021 at 1345 in the pulmonary clinic) PCP,NO [Physician] - Diet: Regular Addtl Attending Provider Instructions: You will likely have a sore throat for 1 to 2 days after the procedure. You may also cough up a small amount of blood. This should improve over the next 1 to 2 days. He may experience a low-grade fever today. Take 3 mg of Tylenol please do not exceed more than 2 g/day. If you start having significant shortness of breath, chest pain or coughing up a large amount of blood please come to the ER. I'll discuss the results of the bronchoscopy with you in the next 3 to 5 days once the results become available. Addtl Admissions Nurse Provider Instructions: Pulmonary function studies scheduled for 06/14/2021 at 1300 Follow-up with Dr. Spring 06/22/2021 at 1345 at [address] office Pending Studies at Discharge: Yes Studies:: Biopsy results and cultures from bronchoscopy Stand-Alone Forms: My [facility] [employer] Medications and DC Order Prescriptions: New prednisone 10 mg tablet 10 mg PO DAILY Qty: 30 RF: 0 Trelegy Ellipta 100-62.5-25 mcg blister with device 1 inh inhalation DAILY Qty: 60 RF: 2 Continued aspirin [Adult Low Dose Aspirin] 81 mg tablet,delayed release (DR/EC) 81 mg PO QAM RF: 0 albuterol sulfate 90 mcg/actuation HFA aerosol inhaler 2 puff inhalation Q6H PRN (Reason: shortness of breath or wheezing) Qty: 8.5 RF: 2 atorvastatin [Lipitor] 40 mg Tablet 40 mg PO QAM RF: 0 metformin 500 mg Tablet 500 mg PO BID RF: 0 losartan 25 mg Tablet 25 mg PO QAM RF: 0 metoprolol succinate 25 mg Tablet Extended Release 24 Hr 25 mg PO QAM RF: 0 Discharge Orders: Discharge Order (Routine); Ordered 06/03/21 Ordered By: Jenny Palm/Other Patient Handouts: A1C, DVT Post Op Prevention, Managing Type 2 Diabetes Admission Data Admit Date/Time: 06/02/21 12:38 Attending Provider: Taj Bridges Admit Provider: Michael Chamorro Primary Care Provider: Shilpi Mojica Other Providers: Gerard Spring Other Interventions: Discharge Summary Assessment (RN) Last Done: 06/03/21 15:46 Supervising Physician Co-Signing Physician Notes Attending Attestation & Discharge Note: Pt seen/examined, chart reviewed, care plan d/w PA Jenny Chun. I agree w/ the santa components of her documentation. 66yo female with RUL lung mass s/p navigational bronchoscopy with biopsy. Post-procedure had mild hypoxia. Admitted to observation status to ensure no clinical worsening. Patient overall did well and remained stable following admission. Passed her ambulatory 2-step oxygen test. Will d/c home on short prednisone taper and close pulmonary f/u to discuss her biopsy results and formulate a treatment plan. Discharge exam - gen - NAD heart - RRR, s1 s2 lungs - focal RUL wheeze, otherwise CTA b/l with no rales abd - soft NT BS+ ext - no edema, pulses 2+ b/l Taj Bridges MD Coding Level of Care Code 03828 OBS Care - Discharge Diagnoses Hypoxia R09.02 Mass of lung R91.8 Anemia D64.9 Anemia type: unspecified type WPW (Adzzi-Fwfaneutp-Cvlvv syndrome) I45.6 Pulmonary nodules/lesions, multiple R91.8 Mitral regurgitation I34.0 Diabetes mellitus, type 2 E11.9
--- NOTE | 2021-06-03 13:57 | Pulmonary Consultation ---
Date of Consultation June 03, 2021 Assessment & Plan (1) Mass of lung: (2) Pulmonary nodules/lesions, multiple: (3) Hypoxia: (4) History of tobacco abuse: Attending: Dr. Blevins Impression: This is a 66-year-old female that presented yesterday for diagnostic bronchoscopy. After the procedure she was hypoxic and retained as an inpatient for overnight observation. She has a history of tobacco abuse and quit smoking 2 months ago. She does have an area concerning for malignancy. She is aware of this. 1. Hypoxia: * Patient with tobacco abuse history most of her adult life. * Suspect that this is a chronic issue that has been untreated * Patient had bronchoscopy yesterday and required 2 L/min via nasal cannula to maintain SaO2 greater than 90% * Suggest getting a two-step today. Suspect patient may need supplemental oxygen on discharge * Await results from bronchoscopy * Follow-up in the outpatient office. May be beneficial to get pulmonary function testing. 2. Pulmonary lesions, mass: * Navigational bronchoscopy with EBUS performed 06/02/[address] Spring * No hemoptysis or evidence of pneumothorax on imaging * Continue with supplemental oxygen as needed per above * Await cytology report from pathology * Follow-up in the office with Dr. Spring 3. Tobacco abuse: * Patient states that she quit smoking and threw all of her cigarettes away at home * Very motivated not to smoke any longer * Recognizes that most of her smoking was because of boredom * Continue to encourage tobacco abstention I think that the patient probably had a exacerbation of underlying issues with the bronchoscopy yesterday. Will discharge home on 7 days of prednisone. Would also start her on Brio Ellipta We will have patient follow-up with Dr. Spring in the office. PFTs scheduled for 06/14/2021 at 1300. Follow-up with Dr. Spring 06/22/2021 at 1345 in the clinic. Supervising Physician Co-Signing Physician Notes I discussed the plan of care of patient with Joe Beavers, and agree with findings and plan as documented in the note. 66-year-old female with a navigational endoscopy with EBUS was found to be hypoxic postprocedure Patient has a severe COPD with emphysema Preliminary diagnosis from the bronchoscopy is adenocarcinoma. Patient will follow up with Dr. Spring as an outpatient Recommend to check for oxygen requirement prior to discharge History of Present Illness Attending Physician: Taj Bridges History of Present Illness Attending: Dr. Blevins This is a 66-year-old female with a history of chronic hypoxia, tobacco abuse, WPW, pulmonary mass with multiple lesions, chronic cough, mitral regurgitation, dyspnea with exertion, elevated troponin. Patient underwent diagnostic evaluation with navigational bronchoscopy and EBUS yesterday with Dr. Spring. She tolerated the procedure well but required supplemental oxygen at the completion of the procedure. She was kept overnight for observation and showed improvement with bronchodilators. Today she remains on 2 L of supplemental oxygen but is saturating at 97%. She has been ambulating to the restroom with no significant shortness of breath or desaturations but she does have fatigue and needs to rest. She denies any exertional chest pain. She has no hemoptysis. She has no production of phlegm or sputum with cough. She denies fever, chills, sweats, rigors. She has no other acute complaints and is anxious to discuss discharge planning. The patient lives alone in a duplex. She basically lives on one floor but does have a laundry room in the basement. She needs to go backwards down the steps and dragged the basket of laundry from step to step on the way down and needs to take the laundry up [id number] after completion of cleansing. Patient denies any falls or mobility issues. She has no complaints of imbalance. Allergies Allergy/AdvReac Type Severity Reaction Status Date / Time No Known Allergies Allergy Mild Verified 06/02/21 05:52 Home Medications Medication Instructions Recorded Confirmed Type ferrous sulfate 325 mg (65 mg 325 mg PO QAM 30 Days #30 tab 05/09/21 06/02/21 Rx iron) tablet,delayed release polyethylene glycol 3350 17 gram 17 g PO DAILY PRN 30 Days #30 ea 05/09/21 06/02/21 Rx oral powder packet (Miralax) albuterol sulfate 90 mcg/actuation 2 puff INHALATION Q6H PRN #8.5 g 05/20/21 Rx aerosol inhaler aspirin 81 mg tablet,delayed 81 mg PO QAM 05/20/21 06/02/21 History release (Adult Low Dose Aspirin) atorvastatin 40 mg tablet (Lipitor) 40 mg PO QAM 05/31/21 06/02/21 History losartan 25 mg tablet 25 mg PO QAM 05/31/21 06/02/21 History metformin 500 mg tablet 500 mg PO BID 05/31/21 06/02/21 History metoprolol succinate 25 mg 25 mg PO QAM 05/31/21 06/02/21 History tablet,extended release 24 hr fluticasone fur. 100 mcg-umeclid 1 inh INHALATION DAILY #60 ea 06/03/21 Rx 62.5 mcg-vilant 25 mcg inhalat.powder (Trelegy Ellipta) prednisone 10 mg tablet 10 mg PO DAILY #30 tab 06/03/21 Rx Patient History Medical History Anemia Chronic obstructive pulmonary disease rare res inh use Cough Diabetes mellitus, type 2 PAGAN (dyspnea on exertion) Hyperlipidemia Hypertension Mitral regurgitation Mild to moderate per 04/2021 ECHO Pulmonary nodules reason for procedure WPW (Wmrpt-Cabiechqp-Drelt syndrome) Dx'ed 05/07/21 prior to hospital admission- cardio consulted - confirmed WPW- had elevated troponins- felt likely demand ischemia- recommended outpatient follow up for possible ablation Surgical History History of tonsillectomy History of tooth extraction Family History Other Cancer Heart disease Social History Smoking Status: Former smoker Smoking End Date: 2 weeks ago; Second Hand Exposure: No; Do You Dip or Chew Tobacco: No; Tobacco Cessation Education Requested by Patient: No Hx Alcohol Use: Yes Alcohol type: wine Hx Substance Use: No Preferred Language: Polish Communication Ability: Effective User Interface Developer Required: No Beliefs That Will Affect Care: None Current Living Situation: Alone Other Information That Helps Us Care for You: No Feels Safe at Home: Yes Safety Concerns: Feels Safe At This Time Assistive Devices: None Review of Systems Review of Systems: All systems reviewed & are unremarkable except as noted in Subjective Physical Exam Physical Exam: Patient seen examination in ASU to in day [address] Blevins's addendum for physical examination Results & Data Results & Data ([facility]) Vital Signs (Past 12 Hours) Vital Signs Temp Pulse Pulse Pulse Pulse Resp Resp 06/03/21 09:40 06/03/21 09:29 115 H 18 06/03/21 09:00 37 C 98 H 20 06/03/21 08:50 148 H 118 H 109 H 24 06/03/21 07:15 90 16 06/03/21 06:33 36.7 C 96 H 16 Resp Resp BP Pulse Ox Pulse Ox Pulse Ox Pulse Ox 06/03/21 09:40 95 06/03/21 09:29 95 06/03/21 09:00 127/58 L 92 06/03/21 08:50 18 18 90 98 95 06/03/21 07:15 100 06/03/21 06:33 145/66 H 96 Laboratory Results 06/03/21 06:02 06/03/21 06:02 Diagnostic Findings Chest X-Ray 06/03/21 04:00 XR chest 1V portable HISTORY: 66 years-old Female hypoxia acute hypoxia COMPARISON: Chest radiograph 06/02/2021, CTA chest 05/07/2021 TECHNIQUE: Portable AP view of the chest FINDINGS: Cardiac silhouette is enlarged, unchanged. Consolidative masslike opacity of the right lung apex redemonstrated. Mild ill-defined bibasilar densities are also again noted. No pneumothorax, large pleural effusion or overt pulmonary edema. Mild chronic interstitial coarsening. Degenerative changes of the shoulders and spine. IMPRESSION: 1. Irregular masslike opacity of the right lung apex redemonstrated. No pneumothorax. 2. Cardiomegaly. 3. Bibasilar nodular opacities are better characterized on the comparison CTA of the chest. ACT 112: Negative or not required by law. The above report was generated using voice recognition software. It may contain grammatical, syntax or spelling errors. Electronically signed by: Maulik Servin M.D. 06/03/2021 7:36 AM PG Care Time/CCT Total # of Minutes Spent Total Time Spent with Patient: Total time spent is greater than 50% in coordination of care (as documented) at patient's floor/unit and/or counseling patient: 60 minutes Coding Level of Care Code 71125 Initial Inpt Care Lvl 3 Diagnoses Mass of lung R91.8 Pulmonary nodules/lesions, multiple R91.8 Hypoxia R09.02 History of tobacco abuse Z87.891 Time Spent (min) 60
== END 2021-06-03 15:48 | disposition home or self-care (01) ==
LOC: PACUINP 05:27 → ASU 05:27 → EDSTATUS 07:15 → SUATTDRO 12:38

== ENCOUNTER 2022-03-17 10:44 | Inpatient (IN) ==
--- NOTE | 2022-03-15 13:28 | Anesthesiology Consultation ---
Date of Service March 15, 2022 Assessment & Plan (1) Encounter for pre-operative examination: - COVID screening: Per assessment on 03/15: No known COVID-19 positive contacts or current COVID-19 related symptoms. Travel screen- Traveled to [place] to visit niece 2 weeks ago (no public transportation, no large groups). At surgeon discretion if preop Covid testing being done. - Pulmonary office visit (10/25/21): "Stage IIIb lung cancer under the care of hematology/oncology. Currently undergoing chemotherapy. Will defer staging images to oncology.. Dyspnea on exertion.. Multifactorial related to active malignancy, deconditioning and emphysema. Continue Trelegy.. Tachycardia.. EKG ordered in the office today. Heart rate 120. Asymptomatic. Likelihood of pulmonary embolism is low. She has a history of WPW. We will reach out to cardiology. I think she needs a sooner appointment with them. She is on metoprolol 50 mg daily." - Cardiology office visit (02/16/22): "history of ischemic ST depression on her EKG , which is asymptomatic and preexcitation.. Her metoprolol was increased at her last visit and her heart rates have improved. No further racing or palpitations.. Impression.. presumed coronary artery disease with ST depression in the inferolateral leads, which is asymptomatic.. Normal left ventricular systolic function with mild-moderate mitral regurgitation; EF 60-65%, without discrete wall motion abnormalities.. 05/05/2021.. Kqxct-Fhtkwjwxe-Kexzz patten on her EKG.. No history of SVT.. Sinus tachycardia, which is likely secondary to her lung cancer and anemia.. Yaima feels that she is stable cardiac platt.. Her bp is a bit elevated here but at home it is running 130s/80s so I will avoid increasing her antihypertensive regimen. Her heart rate is under better control. Her tachycardia is more due to her likely chemo, cancer, and anemia rather than WPW. She is on appropriate CAD medication with statin, ASA, BB and ARB. She is not having any anginal symptoms." - Orthopedic office visit (03/10/22): "history of metastatic lung cancer referred here for evaluation of her left hip. She had a PET scan done on 03/02/2022. Then the imaging showed increased uptake along the medial aspect of the femoral neck suspicious for a stress fracture. She is referred here for orthopedic evaluation.. We discussed further imaging, specifically MRI. She is already scheduled for an MRI next Monday. We will await the results of this and contact her once we see the report and the images of this. In the meantime, I would recommend that she minimize her weightbearing on the left leg. We will get her some crutches today and she can be touch weightbearing with the crutches." - Check BSG AM DOS - Case reviewed with Dr. Watson. He feels that patient is acceptable risk for given surgery without further cardiac evaluation and/or testing pending evalu ation AM DOS. Chart Review Chart Review: Acceptable Risk for Surgery (pending evaluation AM DOS) and Patient NOT seen in Pre Admission Testing History Surgery Operation Date: 03/17/22 13:30 Proposed Procedures p Left Anterior Hip Hemiarthroplasty - Ralph Mon, Height/Weight Height: 5 ft 1 in Weight: 63.957 kg Allergies Allergy/AdvReac Type Severity Reaction Status Date / Time No Known Allergies Allergy Mild Verified 03/15/22 10:01 Medications Home Medications Medication Instructions Recorded Confirmed Last Taken albuterol sulfate 90 mcg/actuation 2 puff inhalation Q6H PRN 05/20/21 03/15/22 Unknown aerosol inhaler shortness of breath or wheezing #8.5 grams aspirin 81 mg tablet,delayed 81 mg PO QAM 05/20/21 03/15/22 06/01/21 06:00 release (Adult Low Dose Aspirin) atorvastatin 40 mg tablet (Lipitor) 40 mg PO QAM 05/31/21 03/15/22 06/01/21 15:30 losartan 25 mg tablet 25 mg PO QAM 05/31/21 03/15/22 06/01/21 15:30 metformin 500 mg tablet 500 mg PO BID 05/31/21 03/15/22 06/01/21 15:30 metoprolol succinate 25 mg 25 mg PO QAM 05/31/21 03/15/22 06/02/21 03:00 tablet,extended release 24 hr calcium 100 mg capsule 40 mg PO QAM 03/15/22 03/15/22 Unknown ferrous sulfate 325 mg (65 mg 325 mg PO QAM 03/15/22 03/15/22 Unknown iron) tablet (iron) fluticasone fur. 100 mcg-umeclid 1 inh inhalation QAM 03/15/22 03/15/22 Unknown 62.5 mcg-vilant 25 mcg inhalat.powder (Trelegy Ellipta) magnesium 200 mg tablet 400 mg PO QAM 03/15/22 03/15/22 Unknown potassium chloride 10 mEq 50 meq PO QAM 03/15/22 03/15/22 Unknown tablet,extended release Past Medical History Medical History (Updated 03/15/22 @ 13:39 by Francesca Garber) Anemia Chronic, baseline hgb 9-10 range per chart review Chronic obstructive pulmonary disease Diabetes mellitus, type 2 Hyperlipidemia Hypertension Lung cancer Chemo completion approximately 01/2022 Osteoarthritis Pulmonary nodules Hx Tachycardia WPW (Svglq-Veimloffp-Kyxak syndrome) Dx'ed 05/07/21 prior to hospital admission- cardio consulted and confirmed WPW- had elevated troponins, felt likely demand ischemia Following with [facility] cardio (last seen 02/2022) Past Family History Family History Other Cancer Heart disease Past Surgical History Surgical History History of tonsillectomy History of tooth extraction Social History Smoking Status: Former smoker tobacco type: cigarettes Do You Dip or Chew Tobacco: No Smoking End Date: Quit a few months ago Hx Alcohol Use: Yes Alcohol type: wine alcohol intake frequency: holidays/special occasions only (Rare occasion) Hx Substance Use: No substance use type: does not use Lab Results Anesthesia Preop Results Results Anesthesia Widget: WBC 9.44 K/uL (4.8-10.8) 01/18/22 Hgb 10.1 g/dL (12.0-16.0) L 01/18/22 Hct 32.9 % (37-47) L 01/18/22 Plt 337 K/uL (130-400) 01/18/22 Na 137 mmol/L (136-145) 01/18/22 K 4.4 mmol/L (3.5-5.1) 01/18/22 Cl 103 mmol/L (98-107) 01/18/22 CO2 25 mmol/L (21-32) 01/18/22 BUN 15 mg/dl (6-23) 01/18/22 Creat 0.57 mg/dl (0.6-1.2) L 01/18/22 Glucose Level 168 mg/dl (70-99(Fasting)) H 01/18/22 Testing Electrocardiogram Date: 10/25/21 ST at 115bpm. WPW* Echocardiogram Date: 05/08/21 EF: 60-65% RWMA: + none Other Findings: + LVH (Borderline/concentric) and + diastolic dysfunction (Grade 1) Valvular Disease: + MR (Mild to moderate) Left atrium mildly dilated. Borderline right atrial enlargement. Other Testing Chest CT (12/03/21) Redemonstration of the mixed solid and groundglass right upper lobe mass consistent with the patient's known malignancy. This is similar to the prior study. Multiple bilateral pulmonary nodules are not significantly changed and likely represent metastatic disease. Mild bilateral hilar lymphadenopathy also persists likely representing metastatic disease. Mild axillary lymphadenopathy is again noted. PET/CT (03/02/22) Stable size and appearance of the large mixed solid and groundglass mass within the right upper lobe compatible with the patient's known malignancy which demonstrates decreased FDG activity. Decreased size and FDG activity of the numerous bilateral subcentimeter solid pulmonary nodules likely representing pulmonary metastasis. Findings are suggestive of positive treatment response. Decreased size and FDG activity of the mediastinal and hilar lymph nodes. Additionally, there is decreased size and FDG activity of the previously described axillary, cervical and inguinal chain lymph nodes. Increased metabolic uptake within the medial aspect of the left femoral neck is suspicious for a stress fracture, new from prior. Correlation with a follow-up MRI of the left hip is needed. This finding was made as a call report to the physician's office. Hip MRI (03/14/22) Confirmation of the nondisplaced left subcapital femoral neck fracture. Urgent surgical consultation recommended for internal fixation. There is significant surrounding signal abnormality/marrow edema at the left femoral neck. A pathologic fracture secondary to an underlying metastatic focus would be difficult to exclude but is not definitely confirmed on this examination.
[~2022-03-17 10:44] MED LIST: BUPIVACAINE 0.5 % 5 MG/1 ML PF 10ML VIAL ONE; LR 500ML BOLUS, THEN 15ML/HR IV SCH
[2022-03-17] MEDS ORDERED: fentaNYL citrate 100 MCG/2 ML VIAL ONE (11:45)
[2022-03-17] MEDS ORDERED: KETAMINE 50 MG/5 ML SYRINGE ONE (11:45)
[2022-03-17] MEDS ORDERED: MIDAZOLAM HCL 1 MG/ML 2ML VIAL ONE (11:45)
[2022-03-17] MEDS ORDERED: fentaNYL citrate 100 MCG/2 ML VIAL IV PRN (11:57)
[2022-03-17] MEDS ORDERED: ATROPINE SULFATE 0.1 MG/ML 10ML SYR IV PRN (11:57)
[2022-03-17] MEDS ORDERED: ePHEDrine sulfate 50 MG/ML AMP IV PRN (11:57)
[2022-03-17] MEDS ORDERED: HYDROmorphone INJ 2 MG/ML SYR/VIAL IV PRN (11:57)
--- NOTE | 2022-03-17 11:58 | History & Physical Bridge Note ---
Date of Service March 17, 2022 History & Physical Bridge Note I have examined the patient, reviewed the History & Physical and in the interval since the performance of the History & Physical I have noted the following changes of clinical significance: no changes noted
[2022-03-17] MEDS ORDERED: ceFAZolin 2000MG 2,000 MG/15 ML SYR IV ONE (12:17)
[2022-03-17] MEDS ORDERED: TRANEXAMIC ACID / 0.7% NACL 1,000 MG/100 ML BAG IV ONE ×2 (12:19)
[2022-03-17] MEDS ORDERED: TRANEXAMIC ACID / 0.7% NACL 1000MG/100ML BAG IV ONE (12:21)
[2022-03-17] MEDS ORDERED: ceFAZolin 2,000 MG/15 ML IV PUSH IV ONE (12:21)
[2022-03-17] MEDS ORDERED: MAGNESIUM SULFATE / D5W 1 GM/100 ML BAG IV ONE (12:48)
[2022-03-17] MEDS ORDERED: GLYCOPYRROLATE 0.2 MG/ML VIAL ONE (12:56)
[2022-03-17] MEDS ORDERED: LIDOCAINE 2% MPF LOCAL 5 ML VIAL INFIL ONE (12:56)
[2022-03-17] MEDS ORDERED: DEXAMETHASONE SOD INJ 4 MG/ML VIAL ONE (12:56)
[2022-03-17] MEDS ORDERED: PROPOFOL IV EMULSION 10 MG/ML 20 ML VIAL IV ONE (12:56)
[2022-03-17] MEDS ORDERED: ONDANSETRON INJ 2 MG/ML 2 ML VIAL ONE (12:56)
[2022-03-17] MEDS ORDERED: PHENYLEPHRINE 100MCG/ML 5ML SYR ONE (13:20)
--- NOTE | 2022-03-17 14:16 | Operative Report ---
PG Post Operative Report Pre & Post Diagnosis Operation Date: 03/17/22 13:30 Pre-Op Diagnosis: Pathologic fracture left hip Post-Op Diagnosis: Pathologic fracture left hip I identified the patient and participated in the time-out.: Yes Procedure Operation Date: 03/17/22 13:30 Actual Procedures p Left Anterior Hip Hemiarthroplasty(Left) - Ralph Mon DO Surgeon Ralph Mon DO Procurement Agent Ralph Betancourt PA-C Estimated Blood Loss 150 Findings Consistent with Post-Op Diagnosis Specimens Left femoral head Description of Procedure Implants used: I used a May Biomet LDFX hip system with a size 12 mm stem, a 28 mm head with a 3.5 mm neck and a 45 mm shell. The femoral stem was cemented with Biomet cement. On March 17, 2022 Yaima arrived at [facility] for the above procedure. She was seen in the preoperative holding area and the operative extremity identified and signed. She was given a preoperative antibiotic and a spinal anesthetic.. She was taken back to the operative room and laid on the table in supine position. She was given basic sedation. The left leg was brought out to a pure wrist leg positioner. The left hip was then prepped and draped in sterile fashion. A timeout was done. The patient and the operative extremity was properly identified. An anterior approach was used. Dissection was taken down through the fascia. The rectus was retracted anteriorly and the tensor was retracted posteriorly. The circumflex vessels were ligated. The capsule was then incised and tagged for later repair. The femoral head and neck was then exposed. The femoral neck was then resected with an oscillating saw. The head was then removed. Care was taken removing any additional ligamentum or labrum. The femoral head measured to be 45 mm. The proximal femur was then exposed. Sequential broaching up to a size 12 broach was done. A 28 mm head with a 3.5 neck and a 45 mm shell was then trialed. The hip was reduced. Fluoroscopic imaging showed anatomic alignment of the hip. The hip was then dislocated. The final 12 mm LDFX smooth collared stem was then cemented in place with Biomet cement. Once cement had hardened a 28 mm head with a 3.5 neck was then impacted onto the femoral stem. A 45 mm shell was then impacted onto the femoral head. The hip was then reduced. Final fluoroscopic images showed anatomic alignment. The wounds then irrigated. The capsule was then closed with #1 Vicryl suture. The fascia was closed with #1 PDS suture. Skin was closed with 2-0 Vicryl and jean. A Silverlon dressing was placed. She was then transferred to a hospital bed and taken to the postanesthesia care unit in stable condition. She tolerated the procedure well. Ralph Betancourt PA-C, was present for the entire procedure. He was critical for patient positioning, prepping, draping, retraction exposure, wound closure and application of sterile dressing. I attest to the content of the Intraoperative Record and any orders documented therein. Any exceptions are noted below.
--- NOTE | 2022-03-17 14:59 | Fluoroscopy Report ---
FL hip LT 1V CLINICAL HISTORY: Left hip hemiarthroplasty. COMPARISON STUDY: None. FLUOROSCOPY TIME: 11 seconds. FINDINGS: 2 fluoroscopic spot images of the left hip demonstrate a left hip hemiarthroplasty. The william dware appears intact. No fracture or dislocation. IMPRESSION: Fluoroscopic assistance provided for a left hip hemiarthroplasty. ACT 112: Negative or not required by law. Electronically signed by: Drew Ordaz M.D. 03/17/2022 2:58 PM
--- NOTE | 2022-03-17 15:01 | XRay Report ---
XR hip 1V LT w pelvis CLINICAL HISTORY: IN PACU - Post Surgical. Left hip prosthesis. COMPARISON STUDY: None. FINDINGS: AP view the pelvis and crosstable lateral view the left hip demonstrate a left hip hemiarth roplasty. The hardware is intact. No fracture or dislocation. Skin jean are in place. IMPRESSION: Status post left hip hemiarthroplasty. No evidence for hardware complication. ACT 112: Negative or not required by law. Electronically signed by: Drew Ordaz M.D. 03/17/2022 3:00 PM
--- NOTE | 2022-03-17 15:27 | Anesthesiology Progress Note ---
Date of Service March 17, 2022 Anesthesia Post Procedure Vital Signs Vital Signs: Temp Pulse Pulse Resp BP Pulse Ox O2 Del Method 03/17/22 15:20 36.6 C 71 13 141/74 H 97 Room Air 03/17/22 15:10 64 17 125/67 97 Room Air 03/17/22 15:00 70 15 128/87 97 Room Air 03/17/22 14:50 65 19 127/53 L 98 Oxymask 03/17/22 14:40 75 18 106/45 L 100 Oxymask 03/17/22 14:30 78 18 118/99 100 Oxymask 03/17/22 14:21 36.6 C 72 18 146/65 H 100 Oxymask 03/17/22 11:06 36.6 C 88 18 147/78 H 96 Room Air O2 Flow Rate 03/17/22 15:20 03/17/22 15:10 03/17/22 15:00 03/17/22 14:50 3 03/17/22 14:40 3 03/17/22 14:30 6 03/17/22 14:21 6 03/17/22 11:06 Pain Intensity Left Hip: Pain Intensity: 3 Transfer of Care Handoff Completed per policy Notes Mental Status: alert / awake / arousable and participated in evaluation Patient Amnestic to Procedure: Yes Nausea / Vomiting: adequately controlled Pain: adequately controlled Airway Patency, RR, SpO2: stable & adequate BP & HR: stable & adequate Hydration State: stable & adequate Anesthetic Complications: no major complications apparent
[2022-03-17] MEDS ORDERED: METOCLOPRAMIDE HCL INJ 5 MG/ML 2 ML VIAL IV PRN (15:41)
[2022-03-17] MEDS ORDERED: bisacodyL 10 MG SUPP PR PRN (15:41)
[2022-03-17] MEDS ORDERED: MAGNESIUM HYDROXIDE SUSP 30 ML UDC PO PRN (15:41)
[2022-03-17] MEDS ORDERED: ONDANSETRON INJ 2 MG/ML 2 ML VIAL IV PRN (15:41)
[2022-03-17] MEDS ORDERED: ALBUTEROL HFA 8 GM INHALER INH PRN (15:41)
[2022-03-17] MEDS ORDERED: NALOXONE HCL 0.4 MG/1 ML VIAL/CARP IV PRN (15:41)
[2022-03-17] MEDS ORDERED: HYDROmorphone INJ 0.5 MG/0.5 ML SYR IV PRN (15:41)
[2022-03-17] MEDS: SODIUM CHLORIDE 0.9% 1000ML 1,000 ML IV SCH (17:23)
[2022-03-17] MEDS: KETOROLAC TROMETHAMINE 15 MG/ML VIAL IV SCH (17:55)
[2022-03-17] MEDS: ceFAZolin 2000MG 2,000 MG/15 ML SYR IV SCH (19:50)
[2022-03-17] MEDS: DOCUSATE SODIUM 100 MG CAP PO SCH (19:50)
[2022-03-17] MEDS: ASPIRIN 81 MG ECTAB PO SCH (19:51)
[2022-03-17] MEDS ORDERED: SENNA 8.6 MG TAB PO SCH (21:00)
[2022-03-17] MEDS: ACETAMINOPHEN 500 MG TAB PO SCH (23:48)
[2022-03-18] MEDS: KETOROLAC TROMETHAMINE 15 MG/ML VIAL IV SCH ×3 (01:06→12:14)
[2022-03-18] MEDS: ACETAMINOPHEN 500 MG TAB PO SCH ×2 (06:11→14:04)
[2022-03-18] MEDS: ceFAZolin 2000MG 2,000 MG/15 ML SYR IV SCH (06:13)
[2022-03-18] MEDS: SODIUM CHLORIDE 0.9% 1000ML 1,000 ML IV SCH (06:28)
[2022-03-18] MEDS: oxyCODONE HCL IR 5 MG TAB (IMMEDIATE RELEASE) PO PRN ×2 (08:45→14:06)
[2022-03-18] MEDS: ASPIRIN 81 MG ECTAB PO SCH (08:45)
[2022-03-18] MEDS: DOCUSATE SODIUM 100 MG CAP PO SCH (08:46)
[2022-03-18] MEDS ORDERED: ATORVASTATIN 40 MG TAB PO SCH (09:00)
[2022-03-18] MEDS ORDERED: MULTIVITAMIN TAB PO SCH (09:00)
[2022-03-18] MEDS ORDERED: FERROUS SULFATE 325 MG TAB PO SCH (09:00)
[2022-03-18] MEDS ORDERED: NON-FORMULARY MEDICATION (Fluticasone-Umeclidin-Vilanter [Trelegy Ellipta] 100-62.5-25 mcg INH SCH (09:00)
[2022-03-18] MEDS ORDERED: MAGNESIUM OXIDE 400 MG TAB PO SCH (09:00)
[2022-03-18] MEDS ORDERED: FLUTICASONE FUROATE 100MCG 14 PUFFS/INHALER INH SCH (09:00)
[2022-03-18] MEDS ORDERED: LOSARTAN POTASSIUM 25 MG TAB PO SCH (09:00)
[2022-03-18] MEDS ORDERED: UMECLIDINIUM/VILANTEROL 62.5/25MCG 7 PUFFS/INHALER INH SCH (09:00)
[2022-03-18] MEDS ORDERED: POTASSIUM CHLORIDE CRTAB 20 MEQ TABCR PO SCH (09:00)
[2022-03-18] MEDS ORDERED: METOPROLOL SUCC 25MG EXT REL TAB PO SCH (09:00)
--- NOTE | 2022-03-18 14:17 | Orthopedic Progress Note ---
Date of Service March 18, 2022 Assessment & Plan (1) Status post hip hemiarthroplasty: Overall she is doing very well. She is now having much pain in the left hip. She feels stable to be discharged home today. She is on aspirin for DVT prophylaxis. She can be discharged home. She will follow-up with orthopedics in 2 weeks. Yajaira Moya was seen and examined at bedside this morning. Overall she doing very well. She is not having much pain in the left hip. She was seen by physical therapy today and was able to ambulate without much difficulty. She has no complaints.. Review of Systems All systems reviewed & are unremarkable except as noted in HPI & below. Physical Exam On physical examination of the left hip, the dressing is clean and dry. Her leg is out full extension. She has active dorsiflexion plantarflexion of her left ankle.. Results & Data Results & Data Laboratory Results . Diagnostic Findings . PG Care Time/CCT Total # of Minutes Spent Total Time Spent with Patient: Total time spent is greater than 50% in coordination of care (as documented) at patient's floor/unit and/or counseling patient: Coding Level of Care Code 75560 Post Operative Follow-Up Diagnoses Status post hip hemiarthroplasty Z96.649
--- NOTE | 2022-03-18 14:18 | Discharge Summary ---
Date of Service March 18, 2022 Principal Diagnosis Same as "Discharge Diagnosis" noted below under Discharge Instructions. Discharge Exam On physical examination of the left hip, the dressing is clean and dry. Her leg is out full extension. She has active dorsiflexion plantarflexion of her left ankle.. Discharge Data Procedures Performed Operation Date: 03/17/22 13:30 Actual Procedures p Left Anterior Hip Hemiarthroplasty(Left) - Ralph Mon DO Ordered Studies 03/17/22 13:30 FL hip LT 1V Routine Hospital Course (1) Status post hip hemiarthroplasty: On March 17, 2022 Yaima arrived at [facility] and underwent a cemented left hip hemiarthroplasty without complication. She had a spinal anesthetic. Postoperatively she was started on aspirin for DVT prophylaxis and transferred to the general orthopedic floors. Her hospital course was uneventful. On postop day #1, her vital signs were stable and her pain was well controlled. She was able to participate well with physical therapy doing ambulation and range of motion exercises. She was then discharged home. She will follow-up with orthopedics in 2 weeks. PG Care Time/CCT Total # of Minutes Spent Total Time Spent with Patient: Total time spent is greater than 50% in coordination of care (as documented) at patient's floor/unit and/or counseling patient: Discharge Plan Discharge Items Patient Disposition: Home - Home Health Services Reason For Visit: Stress Fracture of Left Hip Discharge Diagnosis: Left hip hemiarthroplasty Activity: As commented below Non-emergency contact: Surgeon Call non-emergency contact if: your wound has increased redness and your wound has increased drainage Follow-up/Referrals: Shilpi Mojica DO [Primary Care Provider] - Diet: Regular Addtl Attending Provider Instructions: Activity and Therapy Recommendations: * If you are using [facility] then therapy will be provided at your home until they feel you have accomplished all of your goals. * If you are using [facility] then Physical Therapy will be provided until they feel you are ready to start Outpatient Physical Therapy. * If you are not using home therapy then Outpatient Physical Therapy should start about 3-5 days from your day of surgery. Therapy will last about 6-10 weeks * You were shown a series of exercises in the hospital. Do these exercises three times each day including the exercises you were shown in physical therapy. * Get up and walk several times each day.~ For the first four weeks, try not to stand or walk for more than one hour at a time. If you do stand or walk for more than one hour, you will not hurt anything, but your leg will likely swell.~~ * As you feel comfortable, you may change from the walker or crutches to a cane and~then to independent walking. Medications: * Narcotic You will likely be sent home from the hospital with a prescription for the narcotic pain medication that worked best throughout your stay. * Aspirin Most patients will be required to take Aspirin 81mg twice a day for 6 weeks after surgery. This is obtained [id number] and a prescription is not necessary. * Other medications may be prescribed for specific circumstances. If you have any questions, please call the office at . * Resume previous home medications unless otherwise instructed TEDs/Elastic Stockings: The white elastic stockings help limit swelling and prevent blood clots from forming in your legs. The more you wear them, the more they work. Wear them for six weeks. Dressing Care: Leave the Silverlon dressing in place for 7 days. After 7 days you may remove the dressing. If the incision is not draining then you may leave the jean open to air. If there is a little bit of drainage or if the jean are getting stuck on your clothing then cover the incision with a dry dressing. The jean will be removed at your 2 week follow-up appointment. Showering: You may shower with the Silverlon dressing in place. Do not let the shower spray hit the dressing directly. Pat the Silverlon dressing dry. If the dressing becomes wet underneath, then simply remove the dressing. Keep the incision dry until you are 7 days out from the day of surgery. After 7 days you may remove the Silverlon dressing and shower with the jean exposed. Let soapy water run over the jean and pat them dry. Do not scrub or soak the incision. Things To Watch For: * Drainage from the incision site that occurs more than one week after your surgery. * Increased redness at the incision site. * Fever above 102 degrees Fahrenheit. * Unusual chest pain or shortness of breath. * Call [facility] at with any of the above proble ms Follow-Up Visit: Follow-up with Dr. Mon's PA (Ralph Betancourt) 2-3 weeks after your day of surgery. He will remove your jean and answer any questions. If you have any additional questions or concerns, Dr Mon is usually in the office at the same time and will be available An appointment was probably scheduled when you signed-up for surgery in the office. If you have any questions call Office Instructions: More detailed instructions as well as Frequently Asked Questions were provided in a folder by our office when you signed-up for surgery. Please review these instructions when you get home. If you have any further questions or concerns, please feel free to call the office at [phone] Pending Studies at Discharge: No Stand-Alone Forms: My [facility] [employer], Smoking Cessation Medications and DC Order Prescriptions: Continued albuterol sulfate 90 mcg/actuation HFA aerosol inhaler 2 puff inhalation Q6H PRN (Reason: shortness of breath or wheezing) Qty: 8.5 2RF atorvastatin [Lipitor] 40 mg Tablet 40 mg PO QAM metformin 500 mg Tablet 500 mg PO BID losartan 25 mg Tablet 25 mg PO QAM metoprolol succinate 25 mg Tablet Extended Release 24 Hr 25 mg PO QAM Trelegy Ellipta 100-62.5-25 mcg blister with device 1 inh inhalation QAM ferrous sulfate [iron] 325 mg (65 mg iron) Tablet 325 mg PO QAM calcium 100 mg Capsule 40 mg PO QAM magnesium 200 mg Tablet 400 mg PO QAM potassium chloride 10 mEq Tablet Extended Release 50 meq PO QAM Changed oxycodone-acetaminophen 5-325 mg tablet 1 tab PO Q6 PRN (Reason: pain) Qty: 30 0RF aspirin [Adult Low Dose Aspirin] 81 mg tablet,delayed release (DR/EC) 81 mg PO BID 42 Days Qty: 0 0RF Discharge Orders: Discharge Order (Routine); Ordered 03/18/22 Ordered By: Ralph Mon Admission Data Admit Date/Time: 03/17/22 14:22 Attending Provider: Ralph Mon Admit Provider: Ralph Mon Primary Care Provider: Shilpi Mojica Other Interventions: Discharge Summary Assessment (RN) Last Done: 03/18/22 14:00
[2022-03-19] MEDS ORDERED: POTASSIUM CHLORIDE 10 MEQ TABCR PO SCH (09:00)
== END 2022-03-18 15:10 | disposition home health service (06) | DRG 522 ==
LOC: ASU 10:44 → 3N 10:44